=== PATIENT | female | born 2005 | race Caucasian/White ===

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

== ENCOUNTER 2024-06-07 12:44 | Emergency (ER) | payer OTHER, SELFPAY ==
[2024-06-07 13:04] VITALS: BP 105/67; PULSE 115; RESP 16; TEMP 36.7; O2SAT 100
[2024-06-07 13:36] LABS: EDSTREPNEGPOS1 Negative (Negative)
--- NOTE | 2024-06-07 13:47 | ED_ITS ---
HPI - General Adult General Chief complaint: Upper Respiratory Infection Stated complaint: Sore Throat Source: patient Mode of arrival: ambulatory History of Present Illness HPI narrative: Patient presents requesting a test for strep pharyngitis. Several individuals with whom she lives tested positive earlier today. She denies sore throat. No fever, chills, cough, shortness of breath or any other physical complaints whatsoever. Related Data Home Medications ?Medication ?Instructions ?Recorded ?Confirmed ?Last Taken ?Type No Home Medications 06/07/24 06/07/24 Unknown History Allergies Allergy/AdvReac Type Severity Reaction Status Date / Time No Known Allergies Allergy Unknown Verified 06/07/24 13:24 Review of Systems Review of Systems: CONSTITUTIONAL: Denies fever, chills, or sweats. EYES: Denies visual changes, redness, or discharge. ENT: Denies rhinorrhea, congestion, sore throat, or otalgia. CARDIOVASCULAR: Denies chest pain, palpitations, or edema. RESPIRATORY: Denies cough or dyspnea. GASTROINTESTINAL: Denies abdominal pain, nausea, vomiting, or diarrhea. GENITOURINARY: Denies dysuria or hematuria. SKIN: Denies rash or itching. MUSCULOSKELETAL: Denies back pain, joint pain, or myalgia. NEUROLOGIC: Denies headache, numbness, dizziness, or weakness. PSYCHIATRIC: Denies anxiety or depression. [facility] Past Medical History Medical History No pertinent past medical history Surgical History Surgical History No pertinent past surgical history Family History Family History Mother Family history non-contributory Social History Social History Smoking status: Never smoker Alcohol intake: never Substance use: never Living arrangements: with family Gender identity (if verbalized by the patient): Female Spiritual care concerns: No Exam Narrative: GENERAL: Well-appearing, well-nourished, and in no acute distress. HEAD: Normocephalic, atraumatic. EYES: PERRLA and EOMI. ENT: Nares clear, no rhinorrhea or epistaxis. Mucous membranes moist. Oropharynx without tonsillar hypertrophy exudate or other lesions. Bilateral TMs pearly schwarz nonbulging NECK: Supple. No adenopathy or masses. No carotid bruits or JVD CHEST: Clear to auscultation. No respiratory distress. No wheezes rales or rhonchi HEART: Regular rate and rhythm. No murmur heard. Normal peripheral pulses. ABDOMEN: Soft, nontender, nondistended, normal active bowel sounds. EXTREMITIES: Normal range of motion. No edema. SKIN: Warm, dry, no rash. NEURO: No focal deficits. Alert and oriented x3. PSYCH: Normal mood and affect. Course Course Emergency Course: This is a 18 yr old female who presented today requesting a strep test. Her test was negative. She is asymptomatic. Advised on infection prevention measures. Follow up with primary provider. Go to the ER for worsening symptoms. Pt in agreement with plan of care. Level of Care: Express Care Visit Vital Signs Vital signs: Vital Signs Temperature 36.7 C 06/07/24 13:04 Pulse Rate 115 H 06/07/24 13:04 Respiratory Rate 16 06/07/24 13:04 Blood Pressure 105/67 06/07/24 13:04 Pulse Oximetry 100 06/07/24 13:04 Temperature 36.7 C 06/07/24 13:04 Pulse Rate 115 H 06/07/24 13:04 Respiratory Rate 16 06/07/24 13:04 Blood Pressure 105/67 06/07/24 13:04 Pulse Oximetry 100 06/07/24 13:04 Medical Decision Making Vital Signs Vital Signs: Vital Signs Temperature 36.7 C 06/07/24 13:04 Pulse Rate 115 H 06/07/24 13:04 Respiratory Rate 16 06/07/24 13:04 Blood Pressure 105/67 06/07/24 13:04 Pulse Oximetry 100 06/07/24 13:04 Temperature 36.7 C 06/07/24 13:04 Pulse Rate 115 H 06/07/24 13:04 Respiratory Rate 16 06/07/24 13:04 Blood Pressure 105/67 06/07/24 13:04 Pulse Oximetry 100 06/07/24 13:04 Lab Data Labs: Lab Results 06/07/24 Range/Units 13:34 POC Grp A Strep Screen Negative (Negative) Discharge Plan Discharge Clinical Impression: Exposure to strep throat Patient Disposition: Home, Self-Care Condition: Stable Instructions: Antibiotic Form, Normal Exam (ED) Patient Language: Turkmen Prescriptions: No Action No Home Medications Follow-up/Referrals: Sabas,Margaret Gary MD [Primary Care Provider] - Time of Disposition: 13:46
--- OUTSIDE RECORDS SUMMARY | 2024-06-09 00:29 | XMS_ITS | Clinical Summary ---
Author Organization [facility] Address [address] [place] [address] Phone Care Team Providers Care Cougar Hunter Name Role Phone Humphrey Alston MD Primary Care Provider Allergies No known active allergies Medications No known medications Social History Tobacco Use Types Packs/Day Years Used Date Smoking Tobacco: Never Assessed Comments No Sex and Gender Information Value Date Recorded Sex Assigned at Not on file Legal Sex Female 11:13 PM CDT Gender Identity Not on file Sexual Orientation Not on file Last Filed Vital Signs Vital Sign Reading Time Taken Comments Blood Pressure 112/63 11/05/2019 10:14 PM CDT Pulse 78 11/06/2019 12:14 AM CDT Temperature 37.3 ??C (99.1 ??F) 11/05/2019 1 0:14 PM CDT Respiratory Rate 18 11/06/2019 12:1 4 AM CDT Oxygen Saturation 99% 11/06/2019 12: 14 AM CDT Inhaled Oxygen Concentration - - Weight 48.8 kg (107 lb 9.4 oz) 11/05/19 20 10:14 PM CDT Height 160 cm (5' 3 ) 11/05/2019 10:14 PM CDT Body Mass Index 19.06 11/05/2019 10:14 PM CDT Body Mass Index Percentile 39.01% 11/04 10:14 PM CDT Growth Chart: CDC (Girls, 2- 20 Years) Plan of Treatment Health Maintenance Due Date Last Done Comments Hepatitis C Virus (HCV) Screening 2004 Meningococcal B Immunization (1 of 2 - Standard) 2020 Influenza Immunization (#1) 01/16/202404/16, 01/28/2016, 03/03/2013 SARS-COV-2 Immunization ( season) 2024 Respiratory Syncytial Virus (RSV) Immunization (Adult) (1 - 1-dose 75+ series) 12/16/2079 Hepatitis B Immunization Completed 007, 11/19/2005, 04/02/2005, Additional history exists Pneumococcal Immunization Combined Aged Out 03/08/2007, 07/13/2006, 11/19/2005, Additional history exists No longer eligible based on patient's age to complete this topic Hepatitis A Immunization Discontinued 01/29/2010 Measles Mumps Rubella (MMR) Immunization Discontinued 01/29/2010, 07/13/2006 Polio (IPV) Immunization Discontinued 010, 07/13/2006, 11/19/2005, Additional history exists Varicella Immunization Discontinued 01/29/2010, 2006 DTaP/Tdap/Td Immunization Discontinued 2015, 01/29/2010, 03/08/2007, Additional history exists TdaP Immunization Completed 01/28/2016 Human Papillomavirus (HPV) Immunization Completed 05/04/2017, 01/28/2016 Meningococcal Immunization (ACWY) Completed 12/18/2021, 01/28/2016 Rotavirus Immunization Aged Out No lo nger eligible based on patient's age to complete this topic Insurance * Guarantor: Tammy Rios Account Type Relation to Patient Date of Phone Billing Address Personal/Family Self 2005 [id number] [place] [id number] [employer]ICAID [employer] Care Teams Cougar Hunter Relationship Specialty Start Date End Date Humphrey Alston MD [address] [place] [id number] PCP - General Pediatrics 11/05/19
--- OUTSIDE RECORDS SUMMARY | 2024-06-09 00:29 | XMS_ITS | Clinical Summary ---
Author Organization [facility] Address [address] [place] [address] Care Team Providers Care Horse Breeder Name Role Phone Humphrey Alston MD Primary Care Provider [phone] Source Comments [facility],non-owned Affiliates and Associated Physician Practices is amultiple site organization consisting of ambulatory clinics and hospital sitesin [place], [place], [place] and [place]. This disclosure is being madepursuant to the Care Everywhere program and may not contain all information available regarding this patient. Last updated 18.[facility] Social History Tobacco Use Types Packs/Day Years Used Date Smoking Tobacco: Never Assessed Sex and Gender Information Value Date Recorded Sex Assigned at Not on file Gender Identity Not on file Sexual Orientation Not on file Plan of Treatment Health Maintenance Due Date Last Done Comments HIV SCREENING 12/16/2019 HPV VACCINE (1 - 3-dose series) 12/16/2019 CHLAMYDIA/GONORRHEA SCREENING 2020 MENINGOCOCCAL (Group B) VACC INE (1 of 2 - Standard) 2020 HEPATITIS C SCREENING 12/11/2022 DTAP/TDAP/TD VACCINES (1 - Tdap) 12/16/2023 HEPATITIS B VACCINE (1 of 3 - 19+ 3-dose series) 12/16/2023 COVID-19 VACCINE (1 - 2023-2 5 season) 2024 INFLUENZA VACCINE (#1) 2024 DEPRESSION SCREENING 05/17/2024 ZOSTER VACCINE (1 of 2) 2054 HIB VACCINE Aged Out No longer eligi ble based on patient's age to complete this topic MENINGOCOCCAL VACCINE Aged Out No cole jeffrey eligible based on patient's age to complete this topic PNEUMOCOCCAL VACCINE Aged Out No long er eligible based on patient's age to complete this topic Care Teams Horse Breeder Relationship Specialty Start Date End Date Humphrey Alston MD [address] [place] [phone] PCP - General Pediatrics 07/12/20
--- OUTSIDE RECORDS SUMMARY | 2024-06-09 00:29 | XMS_ITS | Referral Summary ---
Author Organization [facility] Address [address] [place] [address] Care Team Providers Care Gas Plumber Name Role Phone Humphrey Alston MD Primary Care Provider [phone] Source Comments [facility],non-owned Affiliates and Associated Physician Practices is amultiple site organization consisting of ambulatory clinics and hospital sitesin [place], [place], [place] and [place]. This disclosure is being madepursuant to the Care Everywhere program and may not contain all information available regarding this patient. Last updated 18.[facility] [employer] Social History Tobacco Use Types Packs/Day Years Used Date Smoking Tobacco: Never Assessed Sex and Gender Information Value Date Recorded Sex Assigned at Not on file Gender Identity Not on file Sexual Orientation Not on file Plan of Treatment Not on file Care Teams Gas Plumber Relationship Specialty Start Date End Date Humphrey Alston MD [address] [place], [place] [id number] PCP - General Pediatrics 07/12/20
--- OUTSIDE RECORDS SUMMARY | 2024-06-09 00:29 | XMS_ITS | Patient Health Summary ---
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,non-owned Affiliates and Associated Physician Practices is amultiple site organization consisting of ambulatory clinics and hospital sitesin [place], [place], [place] and [place]. This disclosure is being madepursuant to the Care Everywhere program and may not contain all information available regarding this patient. Last updated 18.[facility] Social History Tobacco Use Types Packs/Day Years Used Date Smoking Tobacco: Never Assessed Sex and Gender Information Value Date Recorded Sex Assigned at Not on file Gender Identity Not on file Sexual Orientation Not on file Care Teams Bumper Machine Operator Relationship Specialty Start Date End Date Humphrey Alston MD [address] [phone] PCP - General Pediatrics 07/12/20
--- OUTSIDE RECORDS SUMMARY | 2024-06-09 00:29 | XMS_ITS | Data Portability ---
Author Organization [facility] Jan Rod Address [address] [place] [address] Care Team Providers Care Relief Mate Name Role Phone RONNELL WHATLEY Knotter Hand GURJIT MA Primary Care Provider Unavailab le Assessment No assessment recorded. Plan of Treatment Reminders Order Date Submit Date Provider Last Modified By Organization Details Last Modified Time Details Appointments ANY 15 2024 03:30P M Ronnell Whatley MD Not available Not available Not available Dental Proced ure 30 2024 02:00P M KEVEN JACOBO DMD Not available Not available Not available Prophy 30 2024 01:00P M KEVEN JACOBO DMD Not available Not available Not available Lab None record ed. Referral dermat ologis t referr al 2022 023 MARIBEL Carter MD, [address], [address], 07/16/2023 10:27:52 Procedures None record ed. Surgeries None record ed. Imaging None record ed. Medication Orders cetiri zine 10 mg tablet 2022 023 [id number], [address] [place], [address], 11/17/2023 15:28:08 clobet asol 0.05 % topica l ointme nt 2022 023 [email or web address] [id number], [address] [place], [address], 11/17/2023 15:28:12 Sprint ec (28) 0.25 mg-35 mcg tablet 2022 023 [id number], [address] [place], [address], 11/17/2023 15:28:22 triamc inolon e aceton leonel 0.1 % topica l ointme nt 2022 023 [id number], [address] [place], [address], 11/17/2023 15:28:54 Depo-P rovera 150 mg/mL intram uscula r suspen shirley 2023 024 [id number] [address] [place], [address], 11/24/2023 11:34:28 medrox yproge steron e 150 mg/mL intram uscula r suspen shirley [id number], [address] [place], [address], 12/10/2023 21:55:20 medrox yproge steron e 150 mg/mL intram uscula r syring e 2023 024 [id number] [place], [address], 03/08/2024 14:18:46 Patient TargetsNo targets recorded. Patient InstructionsNo instructions recorded. 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 Problems Name Problem SNOMED Code Status Onset Date Resolution Date Notes Provider Name and Address Organization Details Recorded Time Eczema 38192817 Active 12/19/ 2017 Suyapa [place], [place] [facility] 7 10:15:43 Teenage 335573404 Active 2021 Melva Beltran, R[place] [facility] 3 14:25:01 70638066 Completed 202107/23/2022 Alvina Campoverde LPN [place] [facility] 3 08:52:41 Teenage 473071353 Completed 2021 Melva BeltranCRISTO [place] [facility] 3 14:25:01 Marijuana user 914578523 Active 2021 Melva Bel[place]anCRISTO [place] [facility] 3 14:25:01 Marijuana user 632974135 Completed 2021 Melva Bel[place]CRISTO [place] [facility] 3 14:25:01 Anemia of 48163036 Completed 2021 Melva Beltran, R[place] [facility] 3 14:25:01 Anemia of 27186860 Active 2021 Melva Beltran[place] R[place] [facility] 3 14:25:01 Problem Notes None recorded. Procedures Surgical History Date Name Laterality Status Provider Name and Address Organization Details Recorded Time 4 arthroplasty completed Yelitza Das [place] [facility] 11/17/2023 15:32:39 Imaging Results None recorded. Procedure Notes None recorded. Medical Equipment None Reported. Allergies No known drug allergies Medications Name Sig Start Date Stop Date Status Note LastModified by Organization Details LastModified Time cetirizine 10 mg tablet Take 1 tablet every day by oral route. 11/16 completed Not Available Not Available Not Available metronidazo le 500 mg tablet Take 1 tablet twice a day by oral route. 04/17 completed Not Available Not Available Not Available nifedipine ER 30 mg tablet,exte nded release 08/10 completed Not Available Not Available Not Available acetaminoph en 500 mg tablet 11/16 completed Not Available Not Available Not Available amoxicillin 875 mg tablet 05/04 completed Not Available Not Available Not Available tacrolimus 0.1 % topical ointment APPLY TOPICALLY DAILY (FACE). 11/16 completed Not Available Not Available Not Available ferrous sulfate 325 mg (65 mg iron) tablet TAKE 1 TABLET BY MOUTH EVERY DAY FOR 30 DAYS 10/06 completed Not Available Not Available Not Available triamcinolo ne acetonide 0.1 % topical ointment APPLY TOPICALLY DAILY (BODY). 11/16 completed Not Available Not Available Not Available vitamin-julian israel fumarate 28 mg iron-folic acid 800 mcg tablet Take 1 tablet every day by oral route for 30 days. 04/17 completed Not Available Not Available Not Available docusate sodium 100 mg capsule TAKE 1 CAPSULE BY MOUTH EVERY DAY 10/06 completed Not Available Not Available Not Available clobetasol 0.05 % topical ointment APPLY A THIN LAYER TO THE AFFECTED AREA(S) BY TOPICAL ROUTE 2 TIMES PER DAY FOR 2 WEEKS 11/16 completed Not Available Not Available Not Available ibuprofen 600 mg tablet 10/06 completed Not Available Not Available Not Available fluticasone propionate 50 mcg/actuati on nasal spray,suspe nsion 12/12 completed Not Available Not Available Not Available medroxyprog esterone 150 mg/mL intramuscul ar suspension INJECT 1 MILLILITE R INTRAMUSC ULARLY EVERY 3 MONTHS active Not Available Not Available No t Available naproxen 500 mg tablet TAKE 1 TABLET BY MOUTH TWICE A DAY WITH MEALS 11/16 completed Not Available Not Available Not Available amoxicillin 875 mg-potassiu m clavulanate 125 mg tablet 11/16 completed Not Available Not Available Not Available oxycodone 5 mg tablet 11/16 completed Not Available Not Available Not Available medroxyprog esterone 150 mg/mL intramuscul ar syringe Inject 1 mL every 3 months by intramusc ular route. 2023 active Not Available Not Available Not Avai lable Junel FE 06/05 (28) 1 mg-20 mcg (21)/75 mg (7) tablet TAKE 1 TABLET BY MOUTH EVERY DAY 12/18 completed Not Available Not Available Not Available nitrofurant oin monohydrate /macrocryst als 100 mg capsule 11/16 completed Not Available Not Available Not Available hydrocortis one 12/16 completed Not Available Not Available Not Available 28 mg iron-800 mcg tablet TAKE 1 TABLET BY MOUTH EVERY DAY 10/06 completed Not Available Not Available Not Available Stimulant Laxative Plus 8.6 mg-50 mg tablet 11/16 completed Not Available Not Available Not Available Rosi 0.25 mg-35 mcg tablet TAKE 1 TABLET BY MOUTH EVERY DAY 11/16 completed Not Available Not Available Not Available Twirla 120 mcg-30 mcg/24 hr transdermal patch Apply 1 patch every week by transderm al route for 21 days. 10/06 completed Not Available Not Available Not Available Vitals Date Recorded Body weight Provider Name an d Address Organization Details Last Updated DateTime 10/06/2022 76737.84 g Latesha green MA [facility] 10/06/2022 14:53:08 Date Recorded Body mass index (BMI) Percentile per age and sex Body mass index (BMI) Body height Provider Name and Address Organization Details Last Updated DateTime 10/06/2022 83 % 25.1 kg/m2 162.56 cm Latesha Dubon MA [facility] 10/06/2022 14:53:16 Date Recorded Body temperature Provider Name a nd Address Organization Details Last Updated DateTime 10/06/2022 97.5 [degF] Latesha green MA [facility] 10/06/2022 14:59:29 Date Recorded Oxygen saturation Oxygen saturation in Arterial blood by Pulse oximetry Provider Name and Address Organization Details Last Updated DateTime 10/06/2022 98 % 98 % Latesha Dubon MA [facility] 10/06/2022 14:59:38 Date Recorded Heart rate Provider Name an d Address Organization Details Last Updated DateTime 10/06/2022 67 /min Latesha green MA [facility] 10/06/2022 14:59:40 Date Recorded Body height Provider Name an d Address Organization Details Last Updated DateTime 10/14/2022 162.56 cm CRISTO Matthews [facility] 2022 12:19:03 Date Recorded Body mass index (BMI) Body mass index (BMI) Percentile per age and sex Body weight Provider Name and Address Organization Details Last Updated DateTime 10/14/2022 25.2 kg/m2 83 % 33781.08 blue Melva Beltran Hu [facility] 10/14/2022 12:26:30 Date Recorded Body height Provider Name an d Address Organization Details Last Updated DateTime 11/17/2023 162.56 cm Yelitza Das MA [facility] 11/17/2023 15:26:28 Date Recorded Body mass index (BMI) Percentile per age and sex Body mass index (BMI) Body weight Provider Name and Address Organization Details Last Updated DateTime 11/17/2023 57 % 22.1 kg/m2 45034.56 g Yelitza Das MA [facility] 11/17/2023 15:26:35 Date Recorded Heart rate Provider Name an d Address Organization Details Last Updated DateTime 11/17/2023 82 /min Yelitza Das MA [facility] 07/2023 15:26:54 Date Recorded Body height Provider Name an d Address Organization Details Last Updated DateTime 12/09/2023 162.56 cm Kelly Aguirre MA [facility] 12/09/2023 15:04:04 Date Recorded Body mass index (BMI) Percentile per age and sex Body mass index (BMI) Body weight Provider Name and Address Organization Details Last Updated DateTime 12/09/2023 59 % 22.3 kg/m2 20153.44 blue Kelly Aguirre MA [facility] 12/09/2023 15:12:05 Date Recorded Body height Provider Name an d Address Organization Details Last Updated DateTime 03/07/2024 162.56 cm Melva Beltran [facility] 2023 13:35:44 Date Recorded Body mass index (BMI) Body mass index (BMI) Percentile per age and sex Body weight Provider Name and Address Organization Details Last Updated DateTime 03/07/2024 22.5 kg/m2 60 % 19954.03 blue Melva Beltran [facility] 03/07/2024 13:48:22 Date Recorded Systolic blood pressure Diastolic blood pressure Provider Name and Address Organization Details Last Updated DateTime 10/06/2022 103 mm[Hg] 62 mm[Hg] Latesha RoweRELL luna [facility] 10/06/2022 15:01:35 Date Recorded Systolic blood pressure Diastolic blood pressure Provider Name and Address Organization Details Last Updated DateTime 10/14/2022 122 mm[Hg] 69 mm[Hg] Melva Beltran Hu [facility] 10/14/2022 12:26:41 Date Recorded Systolic blood pressure Diastolic blood pressure Provider Name and Address Organization Details Last Updated DateTime 11/17/2023 103 mm[Hg] 66 mm[Hg] Yelitza GarciahensonRELL [facility] 11/17/2023 15:26:47 Date Recorded Systolic blood pressure Diastolic blood pressure Provider Name and Address Organization Details Last Updated DateTime 12/09/2023 114 mm[Hg] 69 mm[Hg] Kelly BeckerRELL [facility] 12/09/2023 15:12:09 Date Recorded Systolic blood pressure Diastolic blood pressure Provider Name and Address Organization Details Last Updated DateTime 03/07/2024 103 mm[Hg] 63 mm[Hg] Melva Beltran [facility] 03/07/2024 13:48:27 Social History Question Answer Notes LastModified by Organizat ion Details LastModified Time Tobacco Smoking Status Never Smoker Suyapa Layne MA [facility] 05/04/2017 10:18:06 What Is Your Level Of Alcohol Consumption? None Information not available 12/12/2020 Animal Exposure? Yes 3 Dogs, 2 Cats [email or web address] Information not available 05/04/2017 Do You Wear A Helmet When Biking? No Information not available 12/18/2021 Are You Or Have You Been Involved With Bullying? No [email or web address] Information not available 05/04/2017 What Is Your Level Of Caffeine Consumption? Moderate Information not available 05/04/2017 In The 14 Days Before Symptom Onset, Have You Had Close Contact With A Laboratory-confi rmed COVID-19 While That Case Was Ill? No Information not available 12/12/2020 In The 14 Days Before Symptom Onset, Have You Had Close Contact With A Person Who Is Under Investigation For COVID-19 While That Person Was Ill? No Information not available 12/12/2020 Have You Been To An Area Known To Be High Risk For COVID-19? No Information not available 12/12/2020 Are You Currently Employed? No Information not available 12/12/2020 What Type Of Diet Are You Following? REGULAR [email or web address] Information not available 05/04/2017 Which Illicit Or Recreational Drugs Have You Used? Marijuanna Information not available 12/12/2020 What Is The Highest Grade Or Level Of School You Have Completed Or The Highest Degree You Have Received? [id number] Information not available 12/18/2021 Have There Been Any Changes To Your Family Or Social Situation? No Information not available 01/08/2022 Are There Any Guns Present In Your Home? No [email or web address] Information not available 05/04/2017 What Is Your Home Situation? Both Parents Lives With Mom, Step Dad, 2 Half Brothers [email or web address] Information not available 05/04/2017 Do You Use Insect Repellent Routinely? Yes [email or web address] Information not available 05/04/2017 Car Seat Type Or Seat Belt? Seat Belt Information not available 05/04/2017 Parent Involvement? Dad Not Invloved Information not available 05/04/2017 Riding In Car Front Seat? Yes [email or web address] Information not available 05/04/2017 What Was The Date Of Your Most Recent Tobacco Screening? 12/09/2023 Information not available 12/09/2023 What Is Your Parents' Marital Status? Unmarried Information not available 12/18/2021 Do You Have Any Pets? Yes X 7 Cats, X4 Dogs, X1 Lizard,x 1 Turttle Information not available 01/08/2022 Do You Use Protection During Sex? Usually Information not available 12/12/2020 What Is Your Relationship Status? Single Information not available 12/12/2020 Do You Use Your Seat Belt Or Car Seat Routinely? Yes Information not available 12/12/2020 Are You Sexually Active? Yes Information not available 12/12/2020 Do You Have Any Siblings? 2 Half Brothers [email or web address] Information not available 05/04/2017 Do You Have Smoke And Carbon Monoxide Detectors In Your Home? Yes [email or web address] Information not available 05/04/2017 Are You Passively Exposed To Smoke? Yes [email or web address] Information not available 05/04/2017 Do You Participate In Social Media? Yes Information not available 12/18/2021 Do You Feel Stressed (tense, Restless, Nervous, Or Anxious, Or Unable To Sleep At Night)? [id number] Information not available 12/12/2020 Do You Use Any Illicit Or Recreational Drugs? Yes Pt States She Has Duane Jimenez 12/12/20 Information not available 12/12/2020 Do You Use Sunscreen Routinely? Yes [email or web address] Information not available 05/04/2017 Has Tobacco Cessation Counseling Been Provided? No Information not available 12/12/2020 Have You Used IV Drugs? No Information not available 01/08/2022 Year In School 10 Informatio n not available 12/12/2020 Do You Or Have You Ever Used Any Other Forms Of Tobacco Or Nicotine? No Information not available 12/12/2020 Sex: Female Functional Status Question Answer Note LastModified by Organization D etails LastModified Time What is your exercise level? Moderate Information not available 05/04/2017 Mental Status None recorded. Family History Relationship Description Onset Age of this Age Resolved Age Notes LastModified by Organization Details LastModified Time Maternal Grandmother Diabetes mellitus [email or web address] Not available 2016 10:17:06 Maternal Grandfather Heart disease [email or web address] Not available 2016 10:17:14 Maternal Grandfather Hypertensive disorder [email or web address] Not available 2016 10:17:23 Father No current problems or disability [email or web address] Not available 05/04 10:17:29 Mother No current problems or disability [email or web address] Not available 05/04 10:17:29 Medical History Condition Response Other N High Blood Pressure N Breast Cancer N Thyroid Problems N Kidney or Bladder Problems N Lung Disease N Depression N Blood Clots N GI Problems N Acne N Breast Problem N Eating Disorder N Anemia N Anesthesia Complications N Headaches/Migraines N Ovarian Cancer N Diabetes N Anxiety Disorder N Muscle, Joint, or Bone Problems N Blood Transfusions N Seizures/Epilepsy N Polyps N Infertility N Acid Reflux (GERD) N Cancer N Abuse/Domestic Violence N Asthma N Endometriosis N High Cholesterol N Hepatitis N Liver Disease N Heart Disease N Pre-Eclampsia N Osteoporosis N Gynecological History Statement/Question Response Flow Moderate Date of LMP 09/15/2022 STIs/STDs N HPV Vaccine Y Duration of Flow (days) 7 Age at Menarche 11 Current Control Method 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 Y Menses Monthly Y Sexual Problems? N LMP Definite Obstetrics History GPAL:G 1 P 1 0 0 1 Type Value Multiple Births 0 Full Term 1 Induced 0 Spontaneous 0 Premature 0 Living 1 Ectopics 0 Total 1 Immunizations Vaccine Type Date Status Note Provider Nam e and Address Organization Details Recorded Time Influenza, split virus, quadrivalent, PF 6 completed GURJIT MA MD Attn: Accounting,[address] [place], [place], [address] [place] [address], [place] [facility] 05/26/2022 09:56:13 influenza, split (incl. purified surface antigen) 0 completed GURJIT MA MD Attn: Accounting,[address] [place], [place], [address] [place] [address], [place] [facility] 05/26/2022 09:56:13 Hep A, pediatric, unspecified formulation 7 completed GURJIT MA MD Attn: Accounting,[address] [place], [place], [address] [place] [address], [place] [facility] 05/26/2022 09:56:13 meningococcal MCV4P 6 completed GURJIT MA MD Attn: Accounting,[address] [place], [place], [address] [place] [address], [place] [facility] 05/26/2022 09:56:13 Hep A, pediatric, unspecified formulation 0 completed GURJIT MA MD Attn: Accounting,[address] [place], [place], [address] [place] [address], [place] [facility] 05/26/2022 09:56:13 Influenza, live, quadrivalent, intranasal 3 completed GURJIT MA MD Attn: Accounting,[address] [place], [address], [place] [facility] 05/26/2022 09:56:13 HPV9 7 completed Not Available [facility] 06/03/2019 02:47:14 Influenza, split virus, quadrivalent, PF 7 completed Not Available [facility] 06/03/2019 02:34:51 meningococcal MCV4P 2 completed Suyapa Larkin [place] [facility] 12/18/2021 11:27:11 Tdap 3 completed Alvina Campoverde LPN [place] [facility] 05/28/2022 09:22:24 DTaP, unspecified formulation 5 completed Suyapa Lay[place] [facility] 05/04/2017 09:59:43 DTaP, unspecified formulation 7 completed Suyapa [place] [facility] 05/04/2017 09:59:49 DTaP-Hep B-IPV 6 completed Suyapa [place] [facility] 05/04/2017 10:00:09 DTaP-Hep B-IPV 7 completed GURJIT MA MD Attn: Accounting,[address] [place], [address], [place] [facility] 05/26/2022 09:56:13 DTaP-IPV 0 completed Suyapa [place] [facility] 05/04/2017 10:00:28 Hib, unspecified formulation 5 completed Suyapa [place] [facility] 05/04/2017 10:00:37 Hib, unspecified formulation 6 completed Suyapa [place] [facility] 05/04/2017 10:00:43 Hib, unspecified formulation 7 completed uSyapa [place] [facility] 05/04/2017 10:00:47 Hib (PRP-OMP) 7 completed GURJIT MA MD Attn: Accounting,[address] [place], [address], [place] [facility] 05/26/2022 09:56:13 Hep A, ped/adol, 2 dose 7 completed GURJIT MA MD Attn: Accounting,[address] [facility], [place], [address], [place] [facility] 05/26/2022 09:56:13 Hep A, ped/adol, 2 dose 0 completed GURJIT MA MD Attn: Accounting,[address] [facility], [place], [address], [place] [facility] 05/26/2022 09:56:13 Hep B, adolescent or pediatric 5 completed Suyapa [place] [facility] 05/04/2017 10:01:25 Hep B, adolescent or pediatric 5 completed Suyapa [place] [facility] 05/04/2017 10:01:32 HPV9 6 completed GURJIT MA MD Attn: Accounting,[address] [facility], [place], [address], [place] [facility] 05/26/2022 09:56:13 influenza, unspecified formulation 0 completed GURJIT MA MD Attn: Accounting,[address] [facility], [place], [address], [place] [facility] 05/26/2022 09:56:13 influenza, unspecified formulation 3 completed GURJIT MA MD Attn: Accounting,[address] [facility], [place], [address], [place] [facility] 05/26/2022 09:56:13 MMR 7 completed GURJIT MA MD Attn: Accounting,[address] [facility], [place], [address], [place] [facility] 05/26/2022 09:56:13 MMRV 0 completed Suy[place] [facility] 05/04/2017 10:02:22 meningococcal MCV4, unspecified formulation 6 completed GURJIT MA MD Attn: Accounting,[address] [facility], [place], [address], [place] [facility] 05/26/2022 09:56:13 pneumococcal conjugate PCV 7 5 completed Suy[place] [facility] 05/04/2017 10:02:47 pneumococcal conjugate PCV 7 6 completed Su[place] [facility] 05/04/2017 10:02:50 pneumococcal conjugate PCV 7 7 completed GURJIT MA MD Attn: Accounting,[address] [facility], [place], [address], [place] [facility] 05/26/2022 09:56:13 pneumococcal conjugate PCV 7 7 completed Suyapa [place] [facility] 05/04/2017 10:02:59 IPV 5 completed Su[place] [facility] 05/04/2017 10:03:09 Tdap 6 completed GURJIT MA MD Attn: Accounting,[address] [facility], [place], [address], [place] [facility] 05/26/2022 09:56:13 varicella 7 completed Su[place] [facility] 05/04/2017 10:03:32 Past Encounters Encounter ID Performer Location Encounter Start Date Encounter Closed Date Diagnosis/Indication Diagnosis SNOMED-CT Code Diagnosis ICD10 Code Diagnosis Note [id number] MD Neelima Fulton (Peds) [address] [place] [address] 05/04/2017 09:57:14 05/05/2017 08:35:04 Well child 632731914 Z00.129 discussed routine child development director discussed safety and school performanc e discussed healthy weight with diet and exercise Dysmenorrhea 897833560 N 94.6 discussed cycles with pt and mother. discussed using ibuprofen 2 days prior to onset to alleviate pain. [id number] MD Neelima Fulton (Peds) [address] [place] [address] 12/16/2018 14:25:57 12/19/2018 10:30:27 Well child 984420692 Z00.129 discussed routine child development director discussed safety and school performanc e discussed healthy weight with diet and exercise Dysmenorrhea 558475416 N 94.6 discussed cycles with pt and mother. discussed using ibuprofen 2 days prior to onset to alleviate pain. Diet education 78585935 Z71.3 Exercises education, guidance, and counseling 551420960 Z71.82 [id number] [facility] [address] [place] [address] 03/02/2019 16:18:14 03/03/2019 11:42:10 Upper respiratory infection 47944164 J06.9 rest, tylenol prn, humidifier , vitmain c, etc [id number] [facility] [address] [place] [address] 07/27/2019 16:00:43 07/28/2019 09:30:48 Upper respiratory infection 49328228 J06.9 rest, tylenol prn, humidifier , vitmain c, etc [id number] Lorin Ortez (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) [address] [place] [facility] [place] [address] 12/12/2020 10:48:45 12/13/2020 04:20:58 Initial prescription of oral contraception 394883684 Z30.011 control options discussed. Pt. wants pills. Rx sent to pharmacy. Instructivette barragan discussed. Venereal d isease screening 402534310 Z11.3 Telephone visit one week for results. Missed period 71389465 N 92.5 UPT negative, dwp. [id number] [facility] (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) [address] [place] [facility] [place] [address] 12/19/2020 08:08:26 12/26/2020 14:45:15 Bacterial vaginosis 292620572 N76.0 Diagnosis d/w pt. Rx sent to pharmacy. Viry barragan discussed. Venereal d isease screening 833928897 Z11.3 Vaginal culture was negative for gonorrhea, chlamydia, and trichomona s, dwp. STD panel was also completely negative. Individual test results dwp. [id number] Trey Alston MD [facility] (Peds) [address] [place] [address] 12/18/2021 10:27:00 12/19/2021 08:00:27 Well child visit 833085921 Z00.129 discussed routine adolescent carediscus sed safety and school performanc ediscussed healthy weight Diet education 35665279 Z71.3 Exercises education, guidance, and counseling 153673049 Z71.82 Teenage [id number] 001 O09.619 pt states she has appt arranged with 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 DR [place]. [id number] MD Polo Lindsey [address] [place] [address] [address] Joy [facility] [address] 01/08/2022 09:48:27 01/12/2022 07:55:01 Routine care [id number] Z34.91 Vaginal discharge 429198 006 N89.8 [id number] MD Polo Hernandez [address] [place] [address] Dr Joy [facility] [place] [address] 01/14/2022 11:04:01 01/15/2022 10:10:13 Routine care [id number] Z34.91 Tammy is a 16y/o presenting @ 12+3 dated by LMP; here for dating US.- US consistent with IUP 13+4 with JANICE 07/18/2012- recommend change of dates for >7 days difference . OB episode updated. [id number] MD Polo Lindsey [address] Joy [address] [place] [address], [place] [address] 02/09/2022 10:06:04 02/11/2022 09:18:22 Routine care 722588796 Z34.91 Marijuana user 621802434 F12.90 --Encourag e cessation Teenage 259249 001 O09.643 [id number] MD Polo Lindsey [address] Joy [facility] [place] [address] 03/20/2022 10:34:52 03/23/2022 16:42:10 Routine care 875292079 Z34.02 At critical [facility] hospital risk of urinary tract infection 479540901 Z91.89 Marijuana user 872030900 F12.90 --Encourag e cessation Teenage 786041 001 O09.232 [id number] MD Polo Lindsey 14 OB 4 [facility] [address] Joy [address] [place] [address] 04/17/2022 09:54:54 04/21/2022 09:31:24 Routine care 677095178 Z34.02 At critical access hospital risk of urinary tract infection 480868951 Z91.89 [id number] [facility] (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) [address] Joy [address] [place] [address] 05/26/2022 09:46:37 05/28/2022 11:08:04 Eczema 40816377 L30.9 - Suspect atopic dermatitis related to since patient has not had eczema this bad until she became - Discussed basics of skin health, including moisturize r use on damp skin and using Skin Safe Products website to find allergen-f ree products- Will add topical steroid to use on arms and hands until delivery; advised patient not to use on face- Okay to use OTC allergy medicine such as cetirizine as needed for itch [id number] MD Polo Lindsey 14 OB 4 [facility] [address] Joy [address] [place] [address] 05/27/2022 16:30:39 05/28/2022 09:39:19 Routine care 127275268 Z34.02 Administra tion of diphtheria, pertussis, and tetanus vaccine 678605628 Z23 Anemia of 2734 2003 O99.019 --Continue iron daily Marijuana user 688227002 F12.90 --Encourag e cessation Teenage 812648 001 O09.619 --security services manager consult prior to discharge [id number] MD Polo Lindsey 14 OB 4 [facility] [address] Joy [address] [place] [address] 06/10/2022 14:03:07 06/11/2022 09:45:14 Routine care 542787480 Z34.02 Anemia of 2734 2003 O99.019 --Continue iron daily Marijuana user 370939024 F12.90 --Encourag e cessation Teenage 216079 001 O09.619 --security services manager consult prior to discharge [id number] MD Polo Lindsey 14 OB 4 [facility] Dr Joy [address] [place] [address] 06/17/2022 15:01:56 06/18/2022 09:17:16 Routine care 393494908 Z34.02 At critical access hospital risk of urinary tract infection 933409243 Z91.89 Teenage 469792 001 O09.619 --security services manager consult prior to discharge Anemia of 2734 2003 O99.019 --Continue iron daily Marijuana user 346922908 F12.90 --Encourag e cessation [id number] MD Polo Lindsey 14 OB 4 [facility] Dr Joy [address] [place] [address] 06/24/2022 15:31:09 07/01/2022 08:36:07 Routine care 556365542 Z34.02 Teenage 709235 001 O09.619 --security services manager consult prior to discharge Anemia of 2734 2003 O99.019 --Continue iron daily Marijuana user 906707234 F12.90 --Encourag e cessation [id number] MD Polo Lindsey 14 OB 4 [facility] Dr Joy [address] [place] [address] 06/30/2022 14:18:13 07/15/2022 10:29:22 Routine care 395989807 Z34.02 Teenage 323535 001 O09.619 --security services manager consult prior to discharge Anemia of 2734 2003 O99.019 --Continue iron daily Marijuana user 495869187 F12.90 --Encourag e cessation [id number] MD Polo Lindsey 14 OB 4 [facility] Dr Joy [address] [place] [address] 07/07/2022 12:12:18 07/08/2022 10:19:52 Routine care 954814888 Z34.02 Teenage 574812 001 O09.619 --security services manager consult prior to discharge Anemia of 2734 2003 O99.019 --Continue iron daily Marijuana user 216602615 F12.90 --Encourag e cessation [id number] MD Polo Lindsey 14 OB 4 [facility] Dr Joy [address] [place] [address] 1 07/14/2022 16:15:36 07/15/2022 11:44:57 Routine care 972717605 Z34.02 Teenage [id number] 001 O09.619 --security services manager consult prior to discharge Anemia of 2734 2003 O99.019 --Continue iron daily Marijuana user 186270683 F12.90 --Encourag e cessation [id number] MD Polo Lindsey 14 OB 4 [facility] [place] [address] 07/21/2022 09:45:36 07/22/2022 09:47:11 Routine care 492132434 Z34.02 Teenage 169387 001 O09.619 --security services manager consult prior to discharge Anemia of 2734 2003 O99.019 --Continue iron daily Marijuana user 806157501 F12.90 --Encourag e cessation [id number] MD Polo Lindsey 14 OB 4 [facility] [address] [place] [address] 07/27/2022 17:14:12 08/16/2022 03:46:42 -induced hypertension 16429357 O13.9 --Continue procardia 30mg XL daily [id number] Alvina Campoverde LPN [place] 14 OB 4 [facility] [place] [address] 08/10/2022 16:39:00 08/13/2022 03:47:26 [id number] Ronnell Whatley MD Polo 14 OB 4 [facility] [place] [address] 09/02/2022 14:15:40 09/03/2022 09:29:03 care 698842653 Z39.2 --pt healing well Contracept ion care management 172208382 Z30.9 [id number] MD Neelima LEWIS (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) [address] Joy [address] [facility] [place] [address] 10/06/2022 14:43:08 10/07/2022 10:08:07 Eczema 29307209 L30.9 - Discussed basics of skin health, including moisturize r use on damp skin and frequent reapplicat ion of emollients throughout the day- Will add topical steroid to use on arms and hands x2 weeks- Okay to use OTC allergy medicine such as cetirizine as needed for itch- Follow up in 2 weeks to evaluate for change in symptoms; if not improved, consider topical such as tacrolimus [id number] CHASTITY Castle- Pool 14 OB 4 [facility] [place] [address] 10/14/2022 12:17:02 10/15/2022 08:40:31 Eczema 01311617 L30.9 Will refer to derm. Contracept ion care management 272079062 Z30.9 1. Reviewed all forms of control with patient including risk factors and side effects. 2. Counseled on STD transmissi on and prevention , condom use and prevention . 3. Pt would like to start with OCP. Educated on correct use and side effects. Will send rx to pharmacy. 4. Follow up for med check in 3 months or sooner if needed. [id number] MD Polo Lindsey 14 OB 4 [facility] [place] [address] 11/17/2023 15:16:08 11/25/2023 09:21:04 Contraception care management 287945776 Z30.9 --Pt would like depo provera--W ill RTC when on first day of menses Body mass index 20-24 - normal 403388828 Z68.22 Depression screening 171 003251 Z13.31 --PHQ9=2 [id number] RELL Farfan 14 OB 4 [facility] [place] [address] 12/09/2023 14:59:49 12/10/2023 09:50:57 Surveillance of depot contraception done 3927901214 9104 Z30.42 [id number] MD Polo Lindsey 14 OB 4 [facility] [place] [address] 03/07/2024 13:27:20 03/27/2024 07:35:17 Surveillance of depot contraception done 4681844613 9104 Z30.42 Health Concerns Section Related Observation LastModified by Organization Detai ls LastModified Time None Recorded Concern Status LastModified by Organization Details LastModified Time None Recorded Advance Directives Directive None Recorded Payers Encounter Date Sequence Insurance Name Policy Number Policy Astorga Covered Member ID Astorga Member ID Guarantor Name 10/06/2022 1 [facility] ON OR AFTER 11/14/20 (MEDICAID REPLACEMENT - HMO) Tammy Rios [id number] Tammy Rios 10/14/2022 1 [facility] ON OR AFTER 11/14/20 (MEDICAID REPLACEMENT - HMO) Tammy Rios [id number] Tammy Rios 11/17/2023 1 [facility] ON OR AFTER 11/14/20 (MEDICAID REPLACEMENT - HMO) Tammy Rios [id number] Tammy Rios 12/09/2023 1 [facility] ON OR AFTER 11/14/20 (MEDICAID REPLACEMENT - HMO) Tammy Rios [id number] Tammy Rios 03/07/2024 1 [facility] ON OR AFTER 11/14/20 (MEDICAID REPLACEMENT - HMO) Tammy Rios [id number] Tammy Rios Notes Date Note Type Note Provider Name and Address Organization Details Recorded Time 10/06/2022 text/html Eczema- Started getting worse after starting control patch- Itchy and red raised rash; was concerned about hives- Used petroleum jelly with occlusive dressing for 3 days in a row but did not notice significant improvement- Now using Dove sensitive skin fragrance free soap- Started taking 2 Benadryl every 4-6 hours and topical lidocaine, which has helped with the itching GURJIT AM MD Attn: [address] [place], [address], [facility] 10/06/2022 22:32:28 10/14/2022 text/html Annual GYNReport ed bypatient.Menstrual cycle:Normal menses Urinary symptoms:No hematuria; No incontinence Vulva:No genital lesion Vagina:Normal vaginal discharge Breast:No breast pain; No breast lump; No nipple discharge Sexual complaints:No sexual complaints; No pain during intercourse; Normal libido Menopausal Symptoms:No menopausal symptoms; Normal vaginal lubrication Psychological symptoms:No depression; No anxiety; No PMDD Preventive measures:Encourage self breast examination; Encourage regular exercise; Encourage no tobacco use; Encourage regular mammograms starting age [age] yo fe here for control discussion- was on control patch and had allergic reaction to adhesive- would like ocp- would like referral to derm for eczema CHASTITY Castle-BC Attn: Accounting[address], [place], [address], [place] [facility] 10/14/2022 14:28:17 11/17/2023 text/html Patient presents to discuss contraceptive options. She has used twirla and OCPs in the past but desires to use depo provera now. Ronnell Whatley MD Attn: [address], [place], [address], [place] [facility] 11/24/2023 14:10:30 OBGyn Episode Ob Episode Information Episode Created Date Number of Fetuses Patient Bloodtype Patient rh Status Prepregnancy Weight lbs Domestic Partner Domestic Partner Phone Father Name Dispatcher Maintenance Service Status 12/23/19 22 1 DELETED Fetus Data First Name Last Name Admitted to NICU Weight (g) Sex Living Outcome Pediatric Complications Fetus ID Race Codes Race Delivery Type [id number] Janice Calculation Initial Janice Date Initial Exam Date Initial Exam Provider Initial Ultrasound Date Last Menstrual Period Date Ultra Sound Weeks Gestation 08/15/2022 12/22/2021 11/08/2021 0 Eighteen To Twenty Week Janice Update Ultra Sound Date Fundal Height At Umbil Quickening Date Ultra Sound Latest Weeks Gestation Final Janice Confirmed By Final Janice Confirmed Date Final Janice Date Ultra Sound Latest Days Gestation 0 08/16/19 23 0 Menstrual History Last Menstrual Date Menses Monthly On Bcp Conception Prior Menses Frequency Hcg Plus Date Menarche Onset Age 0611/08/2021 Delivery Information Delivery Date Delivery Type Labor Anesthesia Weeks Gestation Incision Type Labor Labor Length Hrs Delivered By Post Complications Tubal Sterilization Discharge Date Comments Discharge Information Feeding Method Contraceptive Method Maternal HG B and HCT Levels Ob Episode Information Episode Created Date Number of Fetuses Patient Bloodtype Patient rh Status Prepregnancy Weight lbs Domestic Partner Domestic Partner Phone Father Name Dispatcher Maintenance Service Status 12/24/19 22 1 O Positive CLOSED Fetus Data First Name Last Name Admitted to NICU Weight (g) Sex Living Outcome Pediatric Complications Fetus ID Race Codes Race Delivery Type Ana Luis f false 3319.74 [id number] F true Full Term 14550 2106-3 White Vaginal Problems Problem Notes bottle feeding , boy cir yes , advised not to change liter box , epidural? Problem Name Start Date End Date Resolution Snomed Code Not e Anemia of 04/20/2022 [id number] Marijuana user 02/09/2022 [id number] Teenage 12/18/2021 [id number] Janice Calculation Initial Janice Date Initial Exam Date Initial Exam Provider Initial Ultrasound Date Last Menstrual Period Date Ultra Sound Weeks Gestation 07/18/2022 12/23/2021 [email or web address] 01/14/2022 10/19/2021 13 Eighteen To Twenty Week Janice Update Ultra Sound Date Fundal Height At Umbil Quickening Date Ultra Sound Latest Weeks Gestation Final Janice Confirmed By Final Janice Confirmed Date Final Janice Date Ultra Sound Latest Days Gestation 02/28/20 22 20 [email or web address] 01/20/2022 07/19/19 23 1 Pre-samantha Flowsheet Flowsheet Date 01/08/2022 Bryson Score Blood Edema Fundus Height Fundus Units Glucose Ketones Leukocytes Nitrite Labor Signs Protein Cervic Dilation Cervic Effacement Cervic Station neg none none negative none neg 0cm Type Weight in lbs Pre/Post Dialysis Refused With clothes 133.027513602571 BP Diastolic BP Location Tested BP Systolic BP Type 60 102 sitting Fetus Heart Rate Present Fetus Movement Comments Patient presents for initial visit. CBE and pelvic exam performed. Nutritional counseling performed. Will obtain labs and schedule dating sonogram. RTC in 4 weeks. Flowsheet Date 01/14/2022 Bryson Score Blood Edema Fundus Height Fundus Units Glucose Ketones Leukocytes Nitrite Labor Signs Protein Cervic Dilation Cervic Effacement Cervic Station Type Weight in lbs Pre/Post Dialysis Refused Weight 116.768733855703 BP Diastolic BP Location Tested BP Systolic BP Type 80 102 sitting Fetus Heart Rate Present Fetus Movement Comments Flowsheet Date 02/09/2022 Bryson Score Blood Edema Fundus Height Fundus Units Glucose Ketones Leukocytes Nitrite Labor Signs Protein Cervic Dilation Cervic Effacement Cervic Station neg none none negative none neg Type Weight in lbs Pre/Post Dialysis Refused With clothes 122.522195621833 BP Diastolic BP Location Tested BP Systolic BP Type 74 106 sitting Fetus Heart Rate Present A 140's Present Fetus Movement Comments Patient denies any complaint s. NIPT and AFP today. Will schedule anatomy ultrasound. RTC in 4 weeks. Flowsheet Date 03/20/2022 Bryson Score Blood Edema Fundus Height Fundus Units Glucose Ketones Leukocytes Nitrite Labor Signs Protein Cervic Dilation Cervic Effacement Cervic Station neg none none negative none neg Type Weight in lbs Pre/Post Dialysis Refused With clothes 138.410459994688 BP Diastolic BP Location Tested BP Systolic BP Type 68 112 sitting Fetus Heart Rate Present A 150's Present Fetus Movement A Yes Comments Patient denies any complaint s. She admits to , denies VB, LOF and CTXs. labor precautions given. RTC in 4 weeks. Flowsheet Date 04/17/2022 Bryson Score Blood Edema Fundus Height Fundus Units Glucose Ketones Leukocytes Nitrite Labor Signs Protein Cervic Dilation Cervic Effacement Cervic Station neg none 26 cm none negative none 1+ Type Weight in lbs Pre/Post Dialysis Refused With clothes 143.517892904554 BP Diastolic BP Location Tested BP Systolic BP Type 68 106 sitting Fetus Heart Rate Present A 140's Present Fetus Movement A Yes Comments Patient denies any complaint s. She admits to FM, denies VB, LOF and CTXs. DMS and CBC today. Will send urine for urine culture. RTC in 3 weeks. Flowsheet Date 05/26/2022 Bryson Score Blood Edema Fundus Height Fundus Units Glucose Ketones Leukocytes Nitrite Labor Signs Protein Cervic Dilation Cervic Effacement Cervic Station Type Weight in lbs Pre/Post Dialysis Refused With clothes 149.934520582629 BP Diastolic BP Location Tested BP Systolic BP Type 72 108 sitting Fetus Heart Rate Present Fetus Movement Comments Flowsheet Date 05/27/2022 Bryson Score Blood Edema Fundus Height Fundus Units Glucose Ketones Leukocytes Nitrite Labor Signs Protein Cervic Dilation Cervic Effacement Cervic Station neg none 32 cm none negative none neg Type Weight in lbs Pre/Post Dialysis Refused With clothes 151.560815574118 BP Diastolic BP Location Tested BP Systolic BP Type 72 110 sitting Fetus Heart Rate Present A 140's Present Fetus Movement A Yes Comments Patient admits to FM, denies VB, LOF and CTXs. Tdap vaccine today. labor precautions given. RTC in 2 weeks. Flowsheet Date 06/10/2022 Bryson Score Blood Edema Fundus Height Fundus Units Glucose Ketones Leukocytes Nitrite Labor Signs Protein Cervic Dilation Cervic Effacement Cervic Station neg none 33 cm none negative Tanner Gale neg Type Weight in lbs Pre/Post Dialysis Refused With clothes 155.10564726515 BP Diastolic BP Location Tested BP Systolic BP Type 66 110 sitting Fetus Heart Rate Present A 120's Present Fetus Movement A Yes Comments Patient admits to FM, denies VB, LOF and CTXs. labor precautions given. RTC in 1 week. Flowsheet Date 06/17/2022 Bryson Score Blood Edema Fundus Height Fundus Units Glucose Ketones Leukocytes Nitrite Labor Signs Protein Cervic Dilation Cervic Effacement Cervic Station neg none 34 cm none negative none neg Type Weight in lbs Pre/Post Dialysis Refused With clothes 155.10501587882 BP Diastolic BP Location Tested BP Systolic BP Type 76 112 sitting Fetus Heart Rate Present A 130's Present Fetus Movement A Yes Comments Patient denies any complaint s. GBS and STD testing today. labor precautions given. RTC in 1 week. Flowsheet Date 06/24/2022 Bryson Score Blood Edema Fundus Height Fundus Units Glucose Ketones Leukocytes Nitrite Labor Signs Protein Cervic Dilation Cervic Effacement Cervic Station neg none 36 cm none negative none neg Type Weight in lbs Pre/Post Dialysis Refused With clothes 159.023741842821 BP Diastolic BP Location Tested BP Systolic BP Type 82 116 sitting Fetus Heart Rate Present A 140's Present Fetus Movement A Yes Comments Patient admits to FM, denies VB, LOF and CTXs. labor precautions given. RTC in 1 week. Flowsheet Date 06/30/2022 Bryson Score Blood Edema Fundus Height Fundus Units Glucose Ketones Leukocytes Nitrite Labor Signs Protein Cervic Dilation Cervic Effacement Cervic Station neg none 37 cm none negative none neg Type Weight in lbs Pre/Post Dialysis Refused With clothes 161.51569611489 BP Diastolic BP Location Tested BP Systolic BP Type 68 114 sitting Fetus Heart Rate Present A 140's Present Fetus Movement A Yes Comments Patient denies any complaint s. Labor precautions given. RTC in 1 week. Flowsheet Date 07/07/2022 Bryson Score Blood Edema Fundus Height Fundus Units Glucose Ketones Leukocytes Nitrite Labor Signs Protein Cervic Dilation Cervic Effacement Cervic Station trace none 38 cm none negative none neg 0cm Type Weight in lbs Pre/Post Dialysis Refused With clothes 163.745690264787 BP Diastolic BP Location Tested BP Systolic BP Type 60 104 sitting Fetus Heart Rate Present A 130's Present Fetus Movement A Yes Comments Patient admits to FM, denies VB, LOF and CTXS. Labor precautions given. RTC in 1 week. Flowsheet Date 07/14/2022 Bryson Score Blood Edema Fundus Height Fundus Units Glucose Ketones Leukocytes Nitrite Labor Signs Protein Cervic Dilation Cervic Effacement Cervic Station neg none 39 cm none negative none neg 0cm Type Weight in lbs Pre/Post Dialysis Refused With clothes 164.436236211840 BP Diastolic BP Location Tested BP Systolic BP Type 66 103 sitting Fetus Heart Rate Present A 130's Present Fetus Movement A Yes Comments Patient admits to FM, denies VB, LOF and CTXs. Labor precautions given. RTC in 1 week. Plan for IOL at 41 weeks. Flowsheet Date 07/21/2022 Bryson Score Blood Edema Fundus Height Fundus Units Glucose Ketones Leukocytes Nitrite Labor Signs Protein Cervic Dilation Cervic Effacement Cervic Station neg none 39 cm none negative none neg 1cm 50% - 3 Type Weight in lbs Pre/Post Dialysis Refused With clothes 163.016856975328 BP Diastolic BP Location Tested BP Systolic BP Type 72 111 sitting Fetus Heart Rate Present A 140's Present Fetus Movement A Yes Comments Patient admits to FM, denies VB, LOF and CTXs. Labor precautions given. IOL scheduled for Wednesday01/24/23 at 0600. Flowsheet Date 07/27/2022 Bryson Score Blood Edema Fundus Height Fundus Units Glucose Ketones Leukocytes Nitrite Labor Signs Protein Cervic Dilation Cervic Effacement Cervic Station Type Weight in lbs Pre/Post Dialysis Refused With clothes 145.336105957253 BP Diastolic BP Location Tested BP Systolic BP Type 81 L arm 117 sitting Fetus Heart Rate Present Fetus Movement Comments Flowsheet Date 09/02/2022 Bryson Score Blood Edema Fundus Height Fundus Units Glucose Ketones Leukocytes Nitrite Labor Signs Protein Cervic Dilation Cervic Effacement Cervic Station Type Weight in lbs Pre/Post Dialysis Refused Stated 148.011344369613 BP Diastolic BP Location Tested BP Systolic BP Type 67 L arm 114 sitting Fetus Heart Rate Present Fetus Movement Comments Menstrual History Last Menstrual Date Menses Monthly On Bcp Conception Prior Menses Frequency Hcg Plus Date Menarche Onset Age 0610/19/2021 true true 28 10 Genetic Screening And Infection History Question Response Note Patient's Age Will Be 35 Yea rs Or Older At Estimated Date of Delivery false Thalassemia (Welsh, Divehi, Mediterranean, Or Background): MCV < 80 false Neural Tube Defect (Meningom yelocele, Spina Bifida, Or Anencephaly) true Spina Bifida pt mother Congenital Heart Defect false Down Syndrome false Woody-Sachs (eg, Congregational, Cajun, Irish-Peruvian) t rue Irish-Peruvian pt Apolinar Disease false Sickle Cell Disease Or Trait () false Hemophilia Or Other Blood Disorders false Muscular Dystrophy false Cystic Fibrosis false Viktoriya's Chorea false Mental Retardation/Autism true Autism FOB MOB sibling If Yes, Was Person Tested For Fragile X? false Other Inherited Genetic Or Chromosomal Disorder false Maternal Metabolic Disorder (eg, Type 1 Diabetes, PKU) true MOB grandmother Patient Or Baby's Father Had A Child With Defects Not Listed Above false Recurrent Loss, Or A Stillbirth false Medications (including Suppl ements, Vitamins, Herbs, OTC Drugs), Illicit/Recreational Drugs, Alcohol true pnv If Yes, Agent(s) And Strength/Dosage false Any Other Genetic History false Live With Someone With TB Or Exposed To TB false Patient Or Partner Has History Of Genital Herpes false Rash Or Viral Illness Since Last Menstrual Perio d false History Of STD, Gonorrhea, Chlamydia, HPV, Syphi lis false Other Infection History false History of HIV false History of Hepatitis false Prior GBS-infected child false Delivery Information Delivery Date Delivery Type Labor Anesthesia Weeks Gestation Incision Type Labor Labor Length Hrs Delivered By Post Complications Tubal Sterilization Discharge Date Comments 3 Induce d Regional-Ep idural 40.4 false Ronnell Whatley MD None 07/24/2022 Discharge Information Feeding Method Contraceptive Method Maternal HG B and HCT Levels Bottle 10.8/30.7
--- OUTSIDE RECORDS SUMMARY | 2024-06-09 00:30 | XMS_ITS | Referral Summary ---
Author Organization [facility] Address [address] [place] [address] Care Team Providers Care Senior Care Assistant Name Role Phone Ronnell Reese MD Unavailable Margaret Obregon MD Primary Care Provider [phone] Allergies Active Allergy Reactions Criticality Noted Date Comments Other Rash Medium 06/06/2023 control patch - broke out into a rash (cannot remember the name of the medication but started with a t ) Medications senna-docusate (PERICOLACE) 8.6-50 mg Take 2 tablets by mouth 2 (two) times a day 60 tablet 4 Active Additional Information Patient not taking.Reported on 06/25/2023 acetaminophen 500 mg capsuleIndicatio ns:Pain Take 2 capsules (1,000 mg total) by mouth every 6 (six) hours 112 tablet 4 Active oxyCODONE (ROXICODONE) 5 mg immediate release tabletIndication s:Pain Take 1 tablet (5 mg total) by mouth every 6 (six) hours as needed for pain 20 tablet 4 Active Additional Information Patient not taking.Reported on 06/25/2023 triamcinolone (KENALOG) 0.1 % ointmentIndicati ons:Dermatitis, unspecified Apply topically daily (Body). 454 g 4 Active tacrolimus (PROTOPIC) 0.1 % ointmentIndicati ons:Dermatitis, unspecified Apply topically daily (Face). 30 g 2 4 Active naproxen (NAPROSYN) 500 mg tablet Take 1 tablet (500 mg total) by mouth 2 (two) times a day with meals 30 tablet 4 Active Active Problems Problem Noted Date Diagnosed Date Flexor tenosynovitis of finger 06/05/2023 Assessment & Plan (06/25/2023 10:29 AM BACON SKINNER): -Patient presents to clinic for a post hospital visit. She has been doing well and her finger has healed well. -No current signs and symptoms of active infection in her finger. -Reviewed most recent labs -Okay to stop antibiotics today as she has completed more than two weeks of treatment and her finger has healed well - Discussed with patient the rational for treatment, culture results, risk of recurrent infection, signs/symptoms of recurrent infection, and to contact ID clinic with any questions or concerns. Assessment & Plan (06/09/2023 12:04 PM BACON SKINNER): Tammy Lopez is an 17 y.o. female with a PMH of eczema affecting her hands, pre-eclampsia during her , presented with flexor tenosynovitis of right small finger s/p I&D of the right small finger. OR findings were notable scant cloudy fluid in the flexor tendon sheath. OR cxs are positive for GAS and MSSA. ID was consulted for antibiotic recommendations. Patient has a 10 months old baby but she does not breast feed. She was started post-operatively on vancomycin and cefepime, narrowed to vancomycin on 06/08, changed to PO Augmentin no 06/08. On admission ESR was 24 and CRP was 69.5. Was seen by dermatology and pustular lesions were swabbed and sent for VZV and HSV- both negative. Recommendations: - Continue amoxicillin-clavulanate (Augmentin) 875-125mg PO BID - ID is formally signing off but will continue to monitor patient peripherally while in house. Recommending to treat right small finger flexor tenosynovitis with 14 days (06/06/23-06/20/23) PO Augmentin or until seen at ID clinic. Do not stop antibiotics until seen by ID. Please see sign off note from 06/09 for complete recommendations. 40 weeks gestation of 07/22/2022 Encounter for elective induction of labor 2022 Family history of spina bifida 04/13/2022 Overview (04/13/2022): Per records pt's mother Family history of autism 04/13/2022 Marijuana use during 04/13/2022 High risk teen , second trimester 04/13 Overview (04/13/2022): [] Co-management vs. [] Full MFM Care; [] Red Team [] Blue Team Referring Provider: Ronnell Reese [phone] [] or Medicare Insurance [x] Dating Criteria: [place] 01/14/22 with JANICE 07/18/22 [x] Labs: Rh [O+], Ab [negative], Rubella [immune], HIV [non-reactive], HepBSAg [negative], RPR [non-reactive], Hep C [negative], Varicella [positive], GC/CT [negative/negative] [x] Genetic Screening: CF negative, NIPT negative, AFP negative [x] CBC/Hgb 12.7/36.8/plt 216 [] Early 1hr GTT (if indicated) [x] UCx: 01/08/22 negative [x] Pap: not indicated based on age [] LD ASA (if indicated) starting at 12 weeks: [] EPDS [ ]; PNBHS referral (if indicated) 2nd Tri Labs: [] Anatomy ultrasound: [] CBC/1hr gtt at 24-28wks: [] Flu Shot (Jan-Apr): [] Tdap (27-36wks): [] COVID Vaccine: [] Rhogam at 28 wks (if Rh neg): 3rd Tri Labs: [] CBC/HIV/RPR/T&S: [] GBS: [] GC/CT (if indicated): [] COVID testing: [] testing: Counseling [] MOD: [] Place of delivery: [] MOC: [] Method of feeding: [] Machine Binder Stripper: [] PP Depression Discussed: Abnormal ultrasound 04/13/2022 Immunizations Name Administration Dates Next Due DTaP / Hep B / IPV 07/13/2006,11/19/2005 DTaP / IPV 01/29/2010 DTaP, Unspecified 03/08/2007,04/02/2005 HPV9 05/04/2017,01/28/2016 Hep A, Ped Unspecified 01/29/2010,03/08/2007 Hep B, Adolescent or Pediatric 04/02/2005,2004 HiB 03/08/2007,11/19/2005,04/02/2005 Hib (PRP-OMP) 07/13/2006 IPV 04/02/2005 Influenza, Live, Intranasal, Quadrivalent 03/03/2013 Influenza, Quadrivalent, Spl it, Preservative Free, Intramuscular 05/04/2017,01/28/2016 Influenza, Split 01/29/2010 MMR 07/13/2006 MMRV 01/29/2010 Meningococcal MCV4P (Menactra) 12/18/2021,2015 Pneumococcal Conjugate 7-Valent 03/08/20 07,07/13/2006,11/19/2005,04/02 Tdap 01/28/2016 Varicella 03/08/2007 Social History Tobacco Use Types Packs/Day Years Used Date Smoking Tobacco: Never Smokeless Tobacco: Never Tobacco Cessation:Counseling Given: Not Answered [facility] TempoIQities Answer Date Recorded In the past 12 months has [employer], gas, oil, or water [employer] threatened to shut off services in your home? No 06/10/2023 Social Connection and Isolat ion Panel [NHANES] Answer Date Recorded In a typical week, how many times do you talk on the phone with family, friends, or neighbors? More than three times a week 06/10/2023 How often do you get togethe r with friends or relatives? More than three times a week 06/10/2023 How often do you attend chur or zoroastrian services? Never 06/10/2023 Do you belong to any clubs o r organizations such as mandaeism groups, unions, fraternal or athletic groups, or school groups? No 06/10/2023 How often do you attend meet ings of the clubs or organizations you belong to? Never 06/10/2023 Are you , , di vorced, , never , or living with a partner? Never 06/10/2023 AUDIT-C Answer Date Recorded Q1: How often do you have a drink containing alcohol? Never 06/06/2023 Q2: How many drinks containi ng alcohol do you have on a typical day when you are drinking? Patient does not drink 4 Q3: How often do you have si x or more drinks on one occasion? Never 06/06/2023 Overall Financial Resource Strain (CARDIA) Answe r Date Recorded How hard is it for you to pa y for the very basics like food, housing, medical care, and heating? Not very hard 06/10/2023 [facility] - Occupational Stress Questionnaire Answer Date Recorded Do you feel stress - tense, restless, nervous, or anxious, or unable to sleep at night because your mind is troubled all the time - these days? Not at all 07/22/2022 Exercise Vital Sign Answer Date Recorde d On average, how many days pe r week do you engage in moderate to strenuous exercise (like a brisk walk)? 0 days 07/22/2022 On average, how many minutes do you engage in exercise at this level? 0 min 07/22/2022 Hunger Vital Sign Answer Date Recorded Within the past 12 months, y ou worried that your food would run out before you got the money to buy more. Sometimes true Within the past 12 months, t he food you bought just didn't last and you didn't have money to get more. Sometimes true PRAPARE - Transportation Answer Date Re corded In the past 12 months, has l ack of transportation kept you from medical appointments or from getting medications? No 05/18 In the past 12 months, has l ack of transportation kept you from meetings, work, or from getting things needed for daily living? No 06/10/2023 Housing Stability Vital Sign Answer Bridger e Recorded In the last 12 months, was t here a time when you were not able to pay the mortgage or rent on time? No 06/10/2023 In the last 12 months, how many places have you lived? 1 06/10/2023 In the last 12 months, was t here a time when you did not have a steady place to sleep or slept in a skilled nursing (including now)? No 06/10/2023 Personal Safety Answer Date Recorded Have you ever been in or are you currently in a harmful physical or emotional relationship or is someone making you feel afraid or unsafe? Denies 10/05/2023 Comments No Sex and Gender Information Value Date Recorded Sex Assigned at Not on file Legal Sex Female 12:37 PM BACON SKINNER Gender Identity Not on file Sexual Orientation Not on file Last Filed Vital Signs Vital Sign Reading Time Taken Comments Blood Pressure 118/63 10/05/2023 5:03 PM CDT Pulse 68 10/05/2023 5:03 PM CDT Temperature 37 ??C (98.6 ??F) 10/05/2023 5:03 PM CDT Respiratory Rate 18 10/05/2023 5:03 PM CDT Oxygen Saturation 100% 10/05/2023 5:03 PM CDT Inhaled Oxygen Concentration - - Weight 61.2 kg (135 lb) 10/05/2023 2:21 PM CDT Height 162.6 cm (5' 4 ) 10/05/2023 2:21 PM CDT Body Mass Index 23.17 10/05/2023 2:21 PM CDT Body Mass Index Percentile 67.89% 10/05/2023 2: 21 PM CDT Growth Chart: [facility] (Girls, 2- 20 Years) Plan of Treatment Not on file Procedures Procedure Name Priority Date/Time Associated Diagnosis Comments HEPATITIS C ANTIBODY Routine 01/08/2022 from Last 3 Months or Most Recently Relevant to Health Maintenance Results * Hepatitis C antibody (01/08/2022) SCRIBED HCV ab negative Blood Ronnell Reese MD LAB MICROBIOLOGY - GEN ERAL ORDERABLES Final Result from Last 3 Months or Most Recently Relevant to Health Maintenance Insurance [facility] MEDICAID [facility] Advance Directives For more information, please contact: [phone] * Full Code (Latest Code Status on File) Date Activated Date Inactivated Comments 06/06/2023 2:45 AM 06/09/2023 8:07 PM * Full Code Date Activated Date Inactivated Comments 07/22/2022 10:51 PM 07/24/2022 7:02 PM * Full Code Date Activated Date Inactivated Comments 07/22/2022 10:31 PM 07/22/2022 10:51 PM Full CPR in case of cardiopulmonary arrest * Full Code Date Activated Date Inactivated Comments 07/22/2022 8:26 AM 07/22/2022 10:31 PM Full CPR in c ase of cardiopulmonary arrest Care Teams Senior Care Assistant Relationship Specialty Start Date End Date Margaret Obregon MD [address] [place] [address] PCP - General Obstetrics and Gynecology 06/05/23 Ronnell Reese MD [address] [place] [address] [address] [address] Near East Archeology Professor Obstetrics and Gynecology 07/24/22
--- OUTSIDE RECORDS SUMMARY | 2024-06-09 00:30 | XMS_ITS | Clinical Summary ---
Author Organization [facility] Address [address] [place] [address] Care Team Providers Care Lost And Found Clerk Name Role Phone Ronnell Reese MD Unavailable Margaret Obregon MD Primary Care Provider [phone] Allergies Active Allergy Reactions Criticality Noted Date [...] 06/05/2023 Assessment & Plan (06/25/2023 10:29 AM BLOW TORCH OPERATOR): -Patient presents to clinic for a post [...] concerns. Assessment & Plan (06/09/2023 12:04 PM BLOW TORCH OPERATOR): Tammy Lopez is an 17 y.o. female [...] [] Blue Team Referring Provider: Ronnell Reese [phone] [] or Medicare Insurance [x] Dating Criteria: [...] [] MOC: [] Method of feeding: [] Chemical Engineering Technician: [] PP Depression Discussed: Abnormal ultrasound 04/13/2022 [...] 7-Valent 03/08/20 07,07/13/2006,11/19/2005,04/02 Tdap 01/28/2016 Varicella 03/08/2007 Medical History Medical History Date Comments Anxiety Hypertension Family History Medical History Relation Name Comments No Known Problems Brother No Known Problems Father Atrial fibrillation Maternal Grandfather Hypertension Mother Diabetes Paternal Grandfather No Known Problems Sister Relation Name Status Comments Brother Father Maternal Grandfather Mother Paternal Grandfather Sister Social History Tobacco Use Types Packs/Day Years Used Date Smoking Tobacco: Never Smokeless Tobacco: Never Tobacco Cessation:Counseling Given: Not Answered [facility] Utilities Answer Date Recorded In the past 12 months has [employer], gas, oil, or water [email or web address] threatened to shut off services in your [...] 06/10/2023 How often do you attend chur ch or temple services? Never 06/10/2023 Do you belong to any clubs o r organizations such as uatsdin groups, unions, fraternal or athletic groups, or [...] you are drinking? Patient does not drink Q3: How often do you have si x or more drinks on one occasion? Never 06/06/2023 Overall Financial Resource Strain (CARDIA) Answe r Date Recorded How hard is it for you to pa y for the very basics like food, housing, medical care, and heating? Not very hard 06/10/2023 [facility] of Occupat ional Health - Occupational Stress [...] place to sleep or slept in a [place] health care facility (including now)? No 06/10/2023 Personal Safety Answer Date Recorded Have you ever been in or are you currently in a harmful physical or emotional relationship or is someone making you feel afraid or unsafe? Denies 10/05/2023 Comments No Sex and Gender Information Value Date Recorded Sex Assigned at Not on file Legal Sex Female 12:37 PM BLOW TORCH OPERATOR Gender Identity Not on file Sexual Orientation Not on file Obstetrics History Para Term AB IAB SAB Ectopic Multiple Livin g Live Births 1 1 1 0 1 1 Date Outcome GA Total Labor Labor//3rd Weight Sex Type Anes PTL Yessenia A1 A5 Name Clin 2022 Term 40w 4d 6h 41m 3h 43m/2h 55m/0h 03m 3.32 kg (7 lb 5.1 oz) F Vag-S pont Epidur al N Livin g 7 8 ESTEVAN IPS,G IRLBR OOKE Hardazar n, Ronnell heart MD Delivery Location:[facility]) Growth Chart Information Age Height Weight Dviuww-hyf-gisu th Percentile BMI Percentile Head Circum Head Circum Percentile Date 17 years 162.6 cm (5' 4 ) 61.2 kg (135 lb) 67.89%* 2023 17 years 162 cm (5' 3.78 ) 58.5 kg (129 lb) 60.28%* 2023 17 years 162.6 cm (5' 4 ) 59 kg (130 lb) 60.44%* 2023 17 years 162.6 cm (5' 4.02 ) 59 kg (130 lb) 60.43%* 2023 17 years 162.6 cm (5' 4 ) 59 kg (130 lb) 60.54%* 2023 16 years 162.6 cm (5' 4 ) 74.4 kg (164 lb) 92.41%* 2022 16 years 162.7 cm (5' 4.06 ) 66 kg (145 lb 9.6 oz) 83.23%* 2021 14 years 160 cm (5' 3 ) 50.8 kg (112 lb) 47.63%* 2019 13 years 48.8 kg (107 lb 9.4 oz) 2019 12 years 162.6 cm (5' 4 ) 49.9 kg (110 lb) 51.03%* 2017 * [facility] (Girls, 2-20 Years) Last Filed Vital Signs Vital Sign Reading [...] CDT Body Mass Index Percentile 67.89% 10/05/2023 2:2 1 PM CDT Growth Chart: [facility] (Girls, 2- 20 Years) Plan of Treatment Health Maintenance Due Date Last Done Comments Depression Screening 2004 Meningococcal B Vaccine (1 o f 2 - Patient Seeks Protection) 2020 Regular Well Visit/Exam 18-64 2022 Influenza Vaccine (#1) 2024 7, 01/28/2016, 03/03/2013, Additional history exists DTaP/Tdap/Td Vaccine (8 - Td or Tdap) 05/28/2032 05/28/2022, 01/28/2016, 01/29/2010, Additional history exists Pneumococcal vaccine <65 Completed 007, 07/13/2006, 11/19/2005, Additional history exists Varicella Vaccines Completed 01/29/2010, 03/08/2007 HPV Vaccines Completed 05/04/2017, 01/28/2016 Meningococcal Vaccine Completed 12/18/2021, 016 Hepatitis C Screening Completed 01/08/2022 Procedures Procedure Name Priority Date/Time Associated Diagnosis Comments HEPATITIS C ANTIBODY Routine 01/08/2022 from Last 3 Months or Most Recently Relevant to Health Maintenance Results * Hepatitis C antibody (01/08/2022) SCRIBED HCV ab negative Blood Ronnell Reese MD LAB MICROBIOLOGY - GEN ERAL ORDERABLES Final Result from Last 3 Months or Most Recently Relevant to Health Maintenance Insurance [facility] Advance Directives For more information, please contact: [phone] * Full Code (Latest Code Status on [...] c ase of cardiopulmonary arrest Care Teams Lost And Found Clerk Relationship Specialty Start Date End Date Margaret Obregon MD [address] [place] [address] PCP - General Obstetrics and Gynecology 06/05/23 Ronnell Reese MD [address] [facility] [address] RAFIQ Gould [address] [address] Chief Lock Tender Operator Obstetrics and Gynecology 07/24/22
== END 2024-06-07 13:52 | disposition home or self-care (01) ==
PROVIDERS: Emergency Provider Nurse Practitioner; PCP Family Medicine
DX: Z20.818 Contact with and (suspected) exposure to other bacterial communicable diseases (principal)
CPT/HCPCS: 87081; 87880; 99213; G0463

== ENCOUNTER 2024-06-22 18:07 | Emergency (ER) | payer OTHER, SELFPAY ==
--- OUTSIDE RECORDS SUMMARY | 2024-06-22 18:08 | XMS_ITS | Referral Summary ---
Author Organization [facility] Address [address] [place] [address] Care Team Providers Care Numerical Control Router Operator Name Role Phone Ronnell Reese MD Unavailable Margaret Obregon MD Primary Care Provider [phone] Allergies Active Allergy Reactions Criticality Noted Date [...] 06/05/2023 Assessment & Plan (06/25/2023 10:29 AM DOUBLE END TENONER SETTER): -Patient presents to clinic for a post [...] concerns. Assessment & Plan (06/09/2023 12:04 PM DOUBLE END TENONER SETTER): Tammy Lopez is an 17 y.o. female [...] [] Blue Team Referring Provider: Ronnell Reese [phone] [] or Medicare Insurance [x] Dating Criteria: [...] [] MOC: [] Method of feeding: [] Mounted Police Officer: [] PP Depression Discussed: Abnormal ultrasound 04/13/2022 [...] Tobacco: Never Tobacco Cessation:Counseling Given: Not Answered [facility] Allied Payment Networkities Answer Date Recorded In the past 12 months has [employer], gas, oil, or water [employer] threatened to shut off services in your [...] How often do you attend chur or islam services? Never 06/10/2023 Do you belong to any clubs o r organizations such as sabianist groups, unions, fraternal or athletic groups, or [...] care, and heating? Not very hard 06/10/2023 [facility] Occupat ional Health - Occupational Stress [...] place to sleep or slept in a halfway (including now)? No 06/10/2023 Personal Safety Answer Date Recorded Have you ever been in or are you currently in a harmful physical or emotional relationship or is someone making you feel afraid or unsafe? Denies 10/05/2023 Comments No Sex and Gender Information Value Date Recorded Sex Assigned at Not on file Legal Sex Female 12:37 PM DOUBLE END TENONER SETTER Gender Identity Not on file Sexual Orientation Not on file Last Filed Vital Signs Vital Sign Reading Time Taken Comments Blood Pressure 118/63 10/05/2023 5:03 PM CDT Pulse 68 10/05/2023 5:03 PM CDT Temperature 37 C (98.6 F) 10/05/2023 5:03 PM CDT Respiratory Rate 18 10/05/2023 5:03 PM CDT Oxygen Saturation 100% 10/05/2023 5:03 PM CDT Inhaled Oxygen Concentration - - Weight 61.2 kg (135 lb) 10/05/2023 2:21 PM CDT Height 162.6 cm (5' 4 ) 10/05/2023 2:21 PM CDT Body Mass Index 23.17 10/05/2023 2:21 PM CDT Body Mass Index Percentile 67.89% 10/05/2023 2: 21 PM CDT Growth Chart: [facility] (Girls, 2- [...] Most Recently Relevant to Health Maintenance Insurance [facility] MEDICAID [facility] Advance Directives For more information, please contact: [phone] * Full Code (Latest Code Status on [...] c ase of cardiopulmonary arrest Care Teams Numerical Control Router Operator Relationship Specialty Start Date End Date Margaret Obregon MD [address] [place] [address] PCP - General Obstetrics and Gynecology 06/05/23 Ronnell Reese MD [address] [facility] [place] [place] [address] Press Technician Obstetrics and Gynecology 07/24/22
--- OUTSIDE RECORDS SUMMARY | 2024-06-22 18:08 | XMS_ITS | Clinical Summary ---
Author Organization [facility] Address [address] [place] [address] Phone Care Team Providers Care Flat Knitter Helper Name Role Phone Humphrey Alston MD Primary [...] 77 11/06/2019 12:14 AM CDT Temperature 37.3 C (99.1 F) 11/05/2019 10:14 PM CDT Respiratory Rate 18 11/06/2019 12:1 [...] patient's age to complete this topic Insurance MEDICAID [facility] MEDICAID [facility] Care Teams Flat Knitter Helper Relationship Specialty Start Date End Date Humphrey Alston MD [address] [place] [id number] PCP - General Pediatrics 11/05/19
--- OUTSIDE RECORDS SUMMARY | 2024-06-22 18:09 | XMS_ITS | Clinical Summary ---
Author Organization [facility] Address [address] [place] [address] Care Team Providers Care Biomedical Instrument Technician Name Role Phone Ronnell Reese MD Unavailable Margaret Obregon MD Primary Care Provider [phone] Allergies Active Allergy Reactions Criticality Noted Date [...] 06/05/2023 Assessment & Plan (06/25/2023 10:29 AM POWER SEWING MACHINE OPERATOR): -Patient presents to clinic for a [...] concerns. Assessment & Plan (06/09/2023 12:04 PM POWER SEWING MACHINE OPERATOR): Tammy Lopez is an 17 y.o. [...] [] Blue Team Referring Provider: Ronnell Reese [phone] [] or Medicare Insurance [x] Dating Criteria: [...] [] MOC: [] Method of feeding: [] Fruit Buying Grader: [] PP Depression Discussed: Abnormal ultrasound 04/13/2022 [...] Tobacco: Never Tobacco Cessation:Counseling Given: Not Answered [facility] Utilities Answer Date Recorded In the past 12 months has [employer], gas, oil, or water [employer] threatened to shut off services in your [...] often do you attend chur ch or restorationism services? Never 06/10/2023 Do you belong to any clubs o r organizations such as pentecostal groups, unions, fraternal or athletic groups, or [...] care, and heating? Not very hard 06/10/2023 [facility] [place] of Occupat ional Health - Occupational Stress [...] place to sleep or slept in a half-way (including now)? No 06/10/2023 Personal Safety Answer Date Recorded Have you ever been in or are you currently in a harmful physical or emotional relationship or is someone making you feel afraid or unsafe? Denies 10/05/2023 Comments No Sex and Gender Information Value Date Recorded Sex Assigned at Not on file Legal Sex Female 12:37 PM POWER SEWING MACHINE OPERATOR Gender Identity Not on file Sexual [...] Hardazar n, Ronnell heart MD Delivery Location:This [facility] ([facility]) Growth Chart Information Age Height Weight Uzrias-ccy-jilh th Percentile BMI Percentile Head Circum Head [...] 49.9 kg (110 lb) 51.03%* 2017 * [facility] (Girls, 2-20 Years) Last Filed Vital Signs [...] 10/05/2023 2:2 1 PM CDT Growth Chart: [facility] (Girls, 2- 20 Years) Plan of Treatment [...] Most Recently Relevant to Health Maintenance Insurance [facility] [address] [place] [address] MEDICAID [facility] Advance Directives For more information, please contact: [phone] * Full Code (Latest Code Status on [...] c ase of cardiopulmonary arrest Care Teams Biomedical Instrument Technician Relationship Specialty Start Date End Date Margaret Obregon MD [address] [place] [address] PCP - General Obstetrics and Gynecology 06/05/23 Ronnell Reese MD [address] [place] [address] [address] RAFIQ [address] [address] Interior Designer Obstetrics and Gynecology 07/24/22
--- OUTSIDE RECORDS SUMMARY | 2024-06-22 18:09 | XMS_ITS | Data Portability ---
Author Organization [facility] Jan Rod Address [address] [place] [address] Care Team Providers Care Clay Modeler Name Role Phone CHACORTA RONNELL Package Lift Operator GURJIT MA Primary Care Provider Unavailab le Assessment No assessment recorded. Plan of Treatment Reminders Order Date Submit Date Provider Last Modified By Organization Details Last Modified Time Details Appointments Dental Proced ure 2024 02:00P M KEVEN JACOBO DMD Not available Not available Not available Prophy 30 2024 01:00P M KEVEN JACOBO DMD Not available Not available Not available Lab None record ed. Referral dermat ologis t referr al 2022 023 [place], [address] [place] [address], [address], 07/16/2023 10:27:52 Procedures None record ed. Surgeries None record ed. Imaging None record ed. Medication Orders Sprint ec (28) 0.25 mg-35 mcg tablet 2022 023 [email or web address] [id number], [address] [place], [address], 11/17/2023 15:28:22 triamc inolon e aceton leonel 0.1 % topica l ointme nt 2022 023 [email or web address] [id number], [address] [place], [address], 11/17/2023 15:28:54 Depo-P rovera 150 mg/mL intram uscula r suspen shirley 2023 024 [id number] [address] [place], [address], 06/19/2024 16:49:29 medrox yproge steron e 150 mg/mL intram uscula r suspen shirley 2023 024 [id number] [address] [place], [address], 06/19/2024 16:49:29 medrox yproge steron e 150 mg/mL intram uscula r syring e 2023 024 [email or web address] [id number], [address] [place], [address], 06/19/2024 17:08:53 Loestr in Fe 06/05 (28-Da y) 1 mg-20 mcg (21)/7 5 mg (7) tablet 2024 025 MARIBEL [id number], [address] [place], [address], 06/19/2024 17:08:51 Patient TargetsNo targets recorded. Patient InstructionsNo instructions recorded. 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 Problems Name Problem SNOMED Code Status Onset Date Resolution Date Notes Provider Name and Address Organization Details Recorded Time Eczema 42834814 Active 2016 RELL [place], [place] - [facility] 7 10:15:43 Teenage 178159616 Active 2021 CRISTO [place], [place] [facility] 3 14:25:01 38406584 Completed 202107/23/2022 Alvina Campoverde TYPING CHECKER [place], [place] [facility] 3 08:52:41 Teenage 861910560 Completed 2021 ASHLEY [place]A [place] [facility] 3 14:25:01 Marijuana user 297071045 Active 2021 ASHLEY [place] [facility] 3 14:25:01 Marijuana user 530974979 Completed 2021 Melva Beltran RMA [place] [facility] 3 14:25:01 Anemia of 95597961 Completed 2021 ASHLEY [place] [facility] 3 14:25:01 Anemia of 66774582 Active 2021 ASHLEY [place]A [place] [facility] 3 14:25:01 Problem [...] completed Not Available Not Available Not Available Loestrin Fe 20 (28-Day) 1 mg-20 mcg (21)/75 mg (7) tablet Take 1 tablet every day by oral route. 2024 active Not Available Not Available Not Avai lable metronidazo le 500 mg tablet Take 1 [...] MILLILITE R INTRAMUSC ULARLY EVERY 3 MONTHS 06/19 completed Not Available Not Available Not Available naproxen 500 mg tablet TAKE 1 [...] every 3 months by intramusc ular route. 06/19 completed Not Available Not Available Not Available nitrofurant oin monohydrate /macrocryst als 100 mg capsule 11/16 completed Not Available Not Available Not Available hydrocortis one 12/16 completed Not Available Not Available Not Available 28 mg iron-800 mcg tablet TAKE 1 TABLET BY MOUTH EVERY DAY 05/23 /2023 completed Not Available Not Available Not Available [...] Available Not Available Vitals Date Recorded Body height Body mass index (BMI) Body mass index (BMI) Percentile per age and sex Body weight Systolic blood pressure Diastolic blood pressure Provider Name and Address Organization Details Last Updated DateTime 3 162.56 cm 25.2 kg/m2 83 % 70318.0 8 g 122 mm[Hg] 69 mm[Hg] CRISTO Matthews [place] - [facility] 3 12:26:41 Date Recorded Body height Body mass index (BMI) Percentile per age and sex Body mass index (BMI) Body weight Heart rate Systolic blood pressure Diastolic blood pressure Provider Name and Address Organization Details Last Updated DateTime 4 162.56 cm 57 % 22.1 kg/m2 94772.5 6 g 82 /min 103 mm[Hg] 66 mm[Hg] Yelitza bermudez [place] [facility] 4 15:26:47 Date Recorded Body height Body mass index (BMI) Percentile per age and sex Body mass index (BMI) Body weight Systolic blood pressure Diastolic blood pressure Provider Name and Address Organization Details Last Updated DateTime 4 162.56 cm 59 % 22.3 kg/m2 41305.4 4 g 114 mm[Hg] 69 mm[Hg] Kelly Aguirre [place] [facility] 4 15:12:09 Date Recorded Body height Body mass index (BMI) Body mass index (BMI) Percentile per age and sex Body weight Systolic blood pressure Diastolic blood pressure Provider Name and Address Organization Details Last Updated DateTime 4 162.56 cm 22.5 kg/m2 60 % 08572.0 3 g 103 mm[Hg] 63 mm[Hg] CRISTO Matthews [place] [facility] 4 13:48:27 Date Recorded Body height Body mass index (BMI) Percentile per age and sex Body mass index (BMI) Body weight Heart rate Systolic blood pressure Diastolic blood pressure Provider Name and Address Organization Details Last Updated DateTime 5 162.56 cm 62 % 22.7 kg/m2 08021.4 8 g 99 /min 101 mm[Hg] 69 mm[Hg] Yelitza bermudez [place] [facility] 5 16:48:18 Social History Question Answer Notes LastModified by Organizat ion Details LastModified Time Tobacco Smoking Status Never Smoker Suyapa Layne MA null, [place] [facility] 05/04/2017 10:18:06 What Is Your Level Of Alcohol Consumption? None Information not available 12/12/2020 Animal Exposure? Yes 3 Dogs, 2 Cats [email or web address] Information not available 05/04/2017 Do You Wear A Helmet When Biking? No Information not available 12/18/2021 Are You Or Have You Been Involved With Bullying? No [email or web address] Information not available 05/04/2017 What Is Your Level Of Caffeine Consumption? Moderate [email or web address] Information not available 05/04/2017 In The 14 [...] Type Of Diet Are You Following? REGULAR Information not available 05/04/2017 Which Illicit Or Recreational Drugs Have You Used? Marijuanna Information not available 12/12/2020 What Is The Highest Grade Or Level Of School You Have Completed Or The Highest Degree You Have Received? [id number] Information not available 12/18/2021 Have There Been Any Changes To Your Family Or Social Situation? No Information not available 01/08/2022 Are There Any Guns Present In Your Home? No [email or web address] Information not available 05/04/2017 What Is Your Home Situation? Both Parents Lives With Mom, Step Dad, 2 Half Brothers [email or web address] Information not available 05/04/2017 Do You Use Insect Repellent Routinely? Yes [email or web address] Information not available 05/04/2017 Car Seat Type Or Seat Belt? Seat Belt [email or web address] Information not available 05/04/2017 Parent Involvement? Dad Not Invloved Information not available 05/04/2017 Riding In Car Front Seat? Yes Information not available 05/04/2017 What Was The [...] You Have Any Siblings? 2 Half Brothers [email or web address] Information not available 05/04/2017 Do You Have Smoke And Carbon Monoxide Detectors In Your Home? Yes [email or web address] Information not available 05/04/2017 Are You Passively Exposed To Smoke? Yes [email or web address] Information not available 05/04/2017 Do You Participate In Social Media? Yes Information not available 12/18/2021 Do You Feel Stressed (tense, Restless, Nervous, Or Anxious, Or Unable To Sleep At Night)? [id number] Information not available 12/12/2020 Do You Use Any Illicit Or Recreational Drugs? Yes Pt States She Has Duane Jimenez 12/12/20 Information not available 12/12/2020 Do You Use Sunscreen Routinely? 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 Y Menses Monthly Y Sexual Problems? N LMP Definite Desired Control Method BCPs Obstetrics History GPAL:G 1 P 1 0 0 1 Type Value Multiple Births 0 Full Term 1 Induced 0 Spontaneous 0 Premature 0 Living 1 Ectopics 0 Total 1 Immunizations Vaccine Type Date Status Note Provider Nam e and Address Organization Details Recorded Time Influenza, split virus, quadrivalent, PF 6 completed GURJIT MA MD Attn: Accounting,[address] [facility], [place], [place], [address] [place] [address], [place] [facility] 05/26/2022 09:56:13 influenza, split (incl. purified surface antigen) 0 completed GURJIT MA MD Attn: Accounting,[address] [facility], [place], [place], [address] [place] [address], [place] [facility] 05/26/2022 09:56:13 Hep A, pediatric, unspecified formulation 7 completed GURJIT MA MD Attn: Accounting,[address] [facility], [place], [address] [place] [address], [place] [facility] 05/26/2022 09:56:13 meningococcal MCV4P 6 completed GURJIT MA MD Attn: Accounting,[address] [facility], [place], [address] [place] [address], [place] [facility] 05/26/2022 09:56:13 Hep A, pediatric, unspecified formulation 0 completed GURJIT MA MD Attn: Accounting,[address] [facility], [place], [address] [place] [address], [place] [facility] 05/26/2022 09:56:13 Influenza, live, quadrivalent, intranasal 3 completed GURJIT MA MD Attn: Accounting,[address] [facility], [place], [address] [place] [address], [place] [facility] 05/26/2022 09:56:13 HPV9 7 completed Not Available [facility] 06/03/2019 02:47:14 Influenza, split virus, quadrivalent, PF 7 completed Not Available [facility] 06/03/2019 02:34:51 meningococcal MCV4P 2 completed Suyapa [...] completed GURJIT MA MD Attn: Accounting,[address] [place], [address], [place] [facility] 05/26/2022 09:56:13 DTaP-IPV 0 completed Suyapa [place]ne [place] [facility] 05/04/2017 10:00:28 Hib, unspecified formulation 5 completed Suyapa [place] [facility] 05/04/2017 10:00:37 Hib, unspecified formulation 6 completed Suyapa [place] [facility] 05/04/2017 10:00:43 Hib, unspecified formulation 7 completed Suyapa [place] [facility] 05/04/2017 10:00:47 Hib (PRP-OMP) 7 completed GURJIT MA MD Attn: Accounting,[address] [place], [address], [place] [facility] 05/26/2022 09:56:13 Hep A, ped/adol, 2 dose 7 completed GURJIT MA MD Attn: Accounting,[address] [place], [address], [place] [facility] 05/26/2022 09:56:13 Hep A, ped/adol, 2 dose 0 completed GURJIT MA MD Attn: Accounting,[address] [place], [address], [place] [facility] 05/26/2022 09:56:13 Hep B, adolescent or pediatric 5 completed Suyapa [place] [facility] 05/04/2017 10:01:25 Hep B, adolescent or pediatric 5 completed Suyapa [place] [facility] 05/04/2017 10:01:32 HPV9 6 completed GURJIT MA MD Attn: Accounting,[address] [facility], [place], [address], [place] [facility] 05/26/2022 09:56:13 influenza, unspecified formulation 0 completed GURJIT MA MD Attn: Accounting,[address] [facility], [place], [address], [place] [facility] 05/26/2022 09:56:13 influenza, unspecified formulation 3 completed GURJIT MA MD Attn: Accounting,[address] [facility], [place], [address], [place] [facility] 05/26/2022 09:56:13 MMR 7 completed GURJIT MA MD Attn: Accounting,[address] [facility], [place], [address], [place] [facility] 05/26/2022 09:56:13 MMRV 0 completed Suyapa [place] [facility] 05/04/2017 10:02:22 meningococcal MCV4, unspecified formulation 6 completed GURJIT MA MD Attn: Accounting,[address] [facility], [place], [address], [place] [facility] 05/26/2022 09:56:13 pneumococcal conjugate PCV 7 5 completed Suyapa [place] [facility] 05/04/2017 10:02:47 pneumococcal conjugate PCV 7 6 completed Suyapa [place] [facility] 05/04/2017 10:02:50 pneumococcal conjugate PCV 7 7 completed GURJIT MA MD Attn: Accounting,[address] [facility], [place], [address], [place] [facility] 05/26/2022 09:56:13 pneumococcal conjugate PCV 7 7 completed Suyapa RELL [place] [facility] 05/04/2017 10:02:59 IPV 5 completed Suyapa [place] [facility] 05/04/2017 10:03:09 Tdap 6 completed GURJIT MA MD Attn: Accounting,[address] [facility], [place], [address], [place] [facility] 05/26/2022 09:56:13 varicella 7 completed Suyapa [place] [facility] 05/04/2017 10:03:32 Past Encounters Encounter ID Performer Location Encounter Start Date Encounter Closed Date Diagnosis/Indication Diagnosis SNOMED-CT Code Diagnosis ICD10 Code Diagnosis Note [id number] MD Neelima Fulton (Peds) [address] [place] [address] 05/04/2017 09:57:14 05/05/2017 08:35:04 Well child 758318579 Z00.129 discussed routine childcare center director discussed safety and school performanc e discussed healthy weight with diet and exercise Dysmenorrhea 579057156 N 94.6 discussed cycles with pt and mother. discussed using ibuprofen 2 days prior to onset to alleviate pain. [id number] MD Zoie Fultonhalto (Peds) [address] [place] [address] 12/16/2018 14:25:57 12/19/2018 10:30:27 Well child 293106266 Z00.129 discussed routine childcare center director discussed safety and school performanc e discussed healthy weight with diet and exercise Dysmenorrhea 288511968 N 94.6 discussed cycles with pt and mother. discussed using ibuprofen 2 days prior to onset to alleviate pain. Diet education 09535765 Z71.3 Exercises education, guidance, and counseling 476583133 Z71.82 [id number] [facility] [address] [place] [address] 03/02/2019 16:18:14 03/03/2019 11:42:10 Upper respiratory infection 76613182 J06.9 rest, tylenol prn, humidifier , vitmain c, etc [id number] [facility] [address] Joy [address] [place] [address] 07/27/2019 16:00:43 07/28/2019 09:30:48 Upper respiratory infection 36997161 J06.9 rest, tylenol prn, humidifier , vitmain c, etc [id number] Lorin Ortez (PHYSICAL SCIENCES INSTRUCTOR) [address] Joy [address] [place] [address] 12/12/2020 10:48:45 12/13/2020 04:20:58 Initial prescription of oral contraception 439039322 Z30.011 control options discussed. Pt. wants pills. Rx sent to pharmacy. Instructio ns discussed. Venereal d isease screening 661425930 Z11.3 Telephone visit one week for results. Missed period 22437391 N 92.5 UPT negative, dwp. [id number] Lorin Ortez (PHYSICAL SCIENCES INSTRUCTOR) [address] Joy [address] [place] [address] 12/19/2020 08:08:26 12/26/2020 14:45:15 Bacterial vaginosis 589503923 N76.0 Diagnosis d/w pt. Rx sent to pharmacy. Instructio ns discussed. Venereal d isease screening 945074638 Z11.3 Vaginal culture was negative for gonorrhea, chlamydia, and trichomona s, dwp. STD panel was also completely negative. Individual test results dwp. [id number] [facility] [address] [place] [address] 12/18/2021 10:27:00 12/19/2021 08:00:27 Well child visit 330735894 Z00.129 discussed routine adolescent carediscus sed safety and school performanc ediscussed healthy weight Diet education 84378760 Z71.3 Exercises education, guidance, and counseling 154345604 Z71.82 Teenage 659691 001 O09.619 pt states she has appt arranged with PHYSICAL SCIENCES INSTRU[employer] DR [place]. [id number] MD Polo Lindsey [address] [place] [address] Dr Joy [address] [place] [address] 01/08/2022 09:48:27 01/12/2022 07:55:01 Routine care 331881762 Z34.91 Vaginal discharge 967138 006 N89.8 [id number] MD Polo Hernandez 14 IM [address] [facility] [place] [address] 01/14/2022 11:04:01 01/15/2022 10:10:13 Routine care 582305051 Z34.91 Tammy is a 16y/o presenting @ 12+3 dated by LMP; here for dating US.- US consistent with IUP 13+4 with JANICE 07/18/2012- recommend change of dates for >7 days difference . OB episode updated. [id number] MD Polo Lindsey 14 OB [address] [facility] [address] Joy [address] [place], [place] [address], [place] [address] 02/09/2022 10:06:04 02/11/2022 09:18:22 Routine care 239484746 Z34.91 Marijuana user 533969805 F12.90 --Encourag e cessation Teenage 463571 001 O09.371 [id number] MD Polo Lindsey 14 OB [address] [facility] [address] Joy [address] [place], [place] [address], [place] [address] 03/20/2022 10:34:52 03/23/2022 16:42:10 Routine care 833034658 Z34.02 At increas ed risk of urinary tract infection 896571492 Z91.89 Marijuana user 675702509 F12.90 --Encourag e cessation Teenage 632233 001 O09.597 [id number] MD Polo Lindsey 14 OB [address] [facility] [address] Joy [address] [place], [place] [address], [place] [address] 04/17/2022 09:54:54 04/21/2022 09:31:24 Routine care 573607460 Z34.02 At increas ed risk of urinary tract infection 219061635 Z91.89 [id number] MD Zoie LEWIShalto (PHYSICAL SCIENCES INSTRUCTOR) [address] [place] [address] 05/26/2022 09:46:37 05/28/2022 11:08:04 Eczema 19726440 L30.9 - Suspect atopic dermatitis related to [...] such as cetirizine as needed for itch [id number] MD Polo Lindsey 14 OB [address] [facility] [place] [address] 05/27/2022 16:30:39 05/28/2022 09:39:19 Routine care 665009316 Z34.02 Administra tion of diphtheria, pertussis, and tetanus vaccine 321293806 Z23 Anemia of 2732003 O99.019 --Continue iron daily Marijuana user 054839604 F12.90 --Encourag e cessation Teenage 178165 001 O09.619 --director field services consult prior to discharge [id number] MD Polo Lindsey [address] [place] [address] Dr Joy [address] [place], [place] [address], [place] [address] 06/10/2022 14:03:07 06/11/2022 09:45:14 Routine care 929286275 Z34.02 Anemia of 2733 2003 O99.019 --Continue iron daily Marijuana user 832504089 F12.90 --Encourag e cessation Teenage 797921 001 O09.619 --director field services consult prior to discharge [id number] MD Polo Lindsey [address] [place] [address] Dr Joy [facility] [place] [address] 06/17/2022 15:01:56 06/18/2022 09:17:16 Routine care 856954551 Z34.02 At [facility] risk of urinary tract infection 505626852 Z91.89 Teenage 022018 001 O09.619 --director field services consult prior to discharge Anemia of 2734 2003 O99.019 --Continue iron daily Marijuana user 396971742 F12.90 --Encourag e cessation [id number] MD Polo Lindsey [address] [place] [address] [place] [address] 06/24/2022 15:31:09 07/01/2022 08:36:07 Routine care 092985854 Z34.02 Teenage 658385 001 O09.619 --director field services consult prior to discharge Anemia of 2734 2003 O99.019 --Continue iron daily Marijuana user 640963872 F12.90 --Encourag e cessation [id number] MD Polo Lindsey 14 OB [address] [facility] [address] Joy [address] [place] [address] 06/30/2022 14:18:13 07/15/2022 10:29:22 Routine care 860822594 Z34.02 Teenage 222809 001 O09.619 --director field services consult prior to discharge Anemia of 2734 2003 O99.019 --Continue iron daily Marijuana user 905426802 F12.90 --Encourag e cessation [id number] MD Polo Lindsey 14 OB [address] [facility] [address] Joy [address] [place] [address] 07/07/2022 12:12:18 07/08/2022 10:19:52 Routine care 628587831 Z34.02 Teenage 973732 001 O09.619 --director field services consult prior to discharge Anemia of 2734 2003 O99.019 --Continue iron daily Marijuana user 724393229 F12.90 --Encourag e cessation [id number] MD Polo Lindsey 14 OB [address] [facility] [place] [address] 07/14/2022 16:15:36 07/15/2022 11:44:57 Routine care 023144841 Z34.02 Teenage 643062 001 O09.619 --director field services consult prior to discharge Anemia of 2734 2003 O99.019 --Continue iron daily Marijuana user 615482054 F12.90 --Encourag e cessation [id number] MD Polo Lindsey 14 OB [address] [facility] [place] [address] 07/21/2022 09:45:36 07/22/2022 09:47:11 Routine care 651148337 Z34.02 Teenage 880797 001 O09.619 --director field services consult prior to discharge Anemia of 2734 2003 O99.019 --Continue iron daily Marijuana user 836977192 F12.90 --Encourag e cessation [id number] Ronnell Reese MD [place] [address] [place] [address] [address] Joy [address] [place], [place] [address], [place] [address] 07/27/2022 17:14:12 08/16/2022 03:46:42 -induced hypertension 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 (PHYSICAL SCIENCES INSTRUCTOR) [address] [place] [address] 10/06/2022 14:43:08 10/07/2022 10:08:07 Eczema 01074749 L30.9 - Discussed basics of skin health, [...] not improved, consider topical such as tacrolimus [id number] [facility] [address] [place] [address] [address] Joy [address] [place], [place] [address], [place] [address] 10/14/2022 12:17:02 10/15/2022 08:40:31 Eczema 43383609 L30.9 Will refer to derm. Contracept ion care management 052510754 Z30.9 1. Reviewed all forms of control with patient including risk factors and side effects. 2. Counseled on STD transmissi on and prevention , condom use and prevention . 3. Pt would like to start with OCP. Educated on correct use and side effects. Will send rx to pharmacy. 4. Follow up for med check in 3 months or sooner if needed. [id number] MD Polo Lindsey 14 OB [address] [facility] [place] [address] 11/17/2023 15:16:08 11/25/2023 09:21:04 Contraception care management 523167619 Z30.9 --Pt would like depo provera--W ill RTC when on first day of menses Body mass index 20-24 - normal 480940044 Z68.22 Depression screening 171 880849 Z13.31 --PHQ9=2 [id number] RELL Farfan [address] [place] [address] [place] [address] 12/09/2023 14:59:49 12/10/2023 09:50:57 Surveillance of depot contraception done 6170736665 9104 Z30.42 [id number] MD Polo Lindsey [address] [place] [address] 03/07/2024 13:27:20 03/27/2024 07:35:17 Surveillance of depot contraception done 8967644040 9104 Z30.42 [id number] MD Polo Lindsey [address] [place] [address] 06/19/2024 16:31:54 06/20/2024 17:46:50 Contraception care management 685256376 Z30.9 Body mass index 20-24 - normal 088399376 Z68.22 Depression screening 171 801636 Z13.31 --PHQ9=2 Health Concerns Section Related Observation LastModified by Organization Detai ls LastModified Time None Recorded Concern Status LastModified by Organization Details LastModified Time None Recorded Advance Directives Directive None Recorded Payers Encounter Date Sequence Insurance Name Policy Number Policy Astorga Covered Member ID Astorga Member ID Guarantor Name 10/14/2022 1 [facility] ON OR AFTER 11/14/20 (MEDICAID REPLACEMENT - HMO) Tammy Rios [id number] Tammy Rios 11/17/2023 1 [facility] ON OR AFTER 11/14/20 (MEDICAID REPLACEMENT - HMO) Tammy Rios [id number] Tammy Rios 12/09/2023 1 [facility] ON OR AFTER 11/14/20 (MEDICAID REPLACEMENT - HMO) Tammypeter Rios [id number] Tammy Rios 03/07/2024 1 [facility] ON OR AFTER 11/14/20 (MEDICAID REPLACEMENT - HMO) Tammy Rios [id number] Tammypeter Rios 06/19/2024 1 [facility] - [facility] ON OR AFTER 11/14/20 (MEDICAID REPLACEMENT - HMO) Tammy Rios [id number] Tammy Rios Notes Date Note Type Note Provider Name and Address Organization Details Recorded Time 10/14/2022 text/html Annual GYNReport ed bypatient.Menstrual cycle:Normal [...] like referral to derm for eczema CHASTITY Castle- Attn: Accounting[address] [place], [address], [facility] 10/14/2022 14:28:17 11/17/2023 text/html Patient presents to discuss contraceptive options. She has used twirla and OCPs in the past but desires to use depo provera now. Ronnell Reese MD Attn: [address]ing[address] [place], [address], [place] 11/24/2023 14:10:30 06/19/2024 text/html Patient presents to discuss contraceptive options. She desires to start OCPs. She denies any other complaints. Ronnell Reese MD Attn: Accounting[address] [place], [address], [facility] 06/20/2024 17:46:48 OBGyn Episode Ob Episode Information Episode Created Date Number of Fetuses Patient Bloodtype Patient rh Status Prepregnancy Weight lbs Domestic Partner Domestic Partner Phone Father Name Transportation Superintendent Status 12/23/19 22 1 DELETED Fetus Data First Name Last Name Admitted to NICU Weight (g) Sex Living Outcome Pediatric Complications Fetus ID Race Codes Race Delivery Type [id number] Janice Calculation Initial Janice Date Initial Exam [...] Domestic Partner Domestic Partner Phone Father Name Transportation Superintendent Status 12/24/19 22 1 O Positive CLOSED Fetus Data First Name Last Name Admitted to NICU Weight (g) Sex Living Outcome Pediatric Complications Fetus ID Race Codes Race Delivery Type Ana Luis f false [id number] [id number] F true Full Term [id number] [id number] White Vaginal Problems Problem Notes bottle feeding , boy cir yes , advised not to change liter box , epidural? Problem Name Start Date End Date Resolution Snomed Code Not e Anemia of 04/20/2022 [id number] Marijuana user 02/09/2022 [id number] Teenage 12/18/2021 [id number] Janice Calculation Initial Janice Date Initial Exam Date Initial Exam Provider Initial Ultrasound Date Last Menstrual Period Date Ultra Sound Weeks Gestation 07/18/2022 12/23/2021 [email or web address] 01/14/2022 10/19/2021 13 Eighteen To Twenty Week Janice Update Ultra Sound Date Fundal Height At Umbil Quickening Date Ultra Sound Latest Weeks Gestation Final Janice Confirmed By Final Janice Confirmed Date Final Janice Date Ultra Sound Latest Days Gestation 02/28/20 22 20 [email or web address] 01/20/2022 07/19/19 23 1 Pre- Flowsheet Flowsheet Date 01/08/2022 Bryson Score Blood Edema Fundus Height Fundus Units Glucose Ketones Leukocytes Nitrite Labor Signs Protein Cervic Dilation Cervic Effacement Cervic Station neg none none negative none neg 0cm Type Weight in lbs Pre/Post Dialysis Refused With clothes 133.880694377071 BP Diastolic BP Location Tested BP Systolic [...] Weight in lbs Pre/Post Dialysis Refused Weight 116.077115387031 BP Diastolic BP Location Tested BP Systolic BP Type 80 102 sitting Fetus Heart Rate Present Fetus Movement Comments Flowsheet Date 02/09/2022 Bryson Score Blood Edema Fundus Height Fundus Units Glucose Ketones Leukocytes Nitrite Labor Signs Protein Cervic Dilation Cervic Effacement Cervic Station neg none none negative none neg Type Weight in lbs Pre/Post Dialysis Refused With clothes 122.737440741125 BP Diastolic BP Location Tested BP Systolic [...] in lbs Pre/Post Dialysis Refused With clothes 138.791188017844 BP Diastolic BP Location Tested BP Systolic [...] in lbs Pre/Post Dialysis Refused With clothes 143.455641113368 BP Diastolic BP Location Tested BP Systolic BP Type 68 106 sitting Fetus Heart Rate Present A 140's Present Fetus Movement A Yes Comments Patient denies any complaint s. She admits to , denies VB, LOF and CTXs. DMS and CBC today. Will send urine for urine culture. RTC in 3 weeks. Flowsheet Date 05/26/2022 Bryson Score Blood Edema Fundus Height Fundus Units Glucose Ketones Leukocytes Nitrite Labor Signs Protein Cervic Dilation Cervic Effacement Cervic Station Type Weight in lbs Pre/Post Dialysis Refused With clothes 149.970133577271 BP Diastolic BP Location Tested BP Systolic BP Type 72 108 sitting Fetus Heart Rate Present Fetus Movement Comments Flowsheet Date 05/27/2022 Bryson Score Blood Edema Fundus Height Fundus Units Glucose Ketones Leukocytes Nitrite Labor Signs Protein Cervic Dilation Cervic Effacement Cervic Station neg none 32 cm none negative none neg Type Weight in lbs Pre/Post Dialysis Refused With clothes 151.680804485193 BP Diastolic BP Location Tested BP Systolic BP Type 72 110 sitting Fetus Heart Rate Present A 140's Present Fetus Movement A Yes Comments Patient admits to , denies VB, LOF and CTXs. Tdap vaccine today. labor precautions given. RTC in 2 weeks. Flowsheet Date 06/10/2022 Bryson Score Blood Edema Fundus Height Fundus Units Glucose Ketones Leukocytes Nitrite Labor Signs Protein Cervic Dilation Cervic Effacement Cervic Station neg none 33 cm none negative [place] Gale neg Type Weight in lbs Pre/Post Dialysis Refused With clothes 155.25123923966 BP Diastolic BP Location Tested BP Systolic BP Type 66 110 sitting Fetus Heart Rate Present A 120's Present Fetus Movement A Yes Comments Patient admits to , denies VB, LOF and CTXs. labor precautions given. RTC in 1 week. Flowsheet Date 06/17/2022 Bryson Score Blood Edema Fundus Height Fundus Units Glucose Ketones Leukocytes Nitrite Labor Signs Protein Cervic Dilation Cervic Effacement Cervic Station neg none 34 cm none negative none neg Type Weight in lbs Pre/Post Dialysis Refused With clothes 155.66235781669 BP Diastolic BP Location Tested BP Systolic [...] in lbs Pre/Post Dialysis Refused With clothes 159.658975344934 BP Diastolic BP Location Tested BP Systolic [...] in lbs Pre/Post Dialysis Refused With clothes 161.21113346137 BP Diastolic BP Location Tested BP Systolic [...] in lbs Pre/Post Dialysis Refused With clothes 163.991969569762 BP Diastolic BP Location Tested BP Systolic [...] in lbs Pre/Post Dialysis Refused With clothes 164.753998692097 BP Diastolic BP Location Tested BP Systolic [...] in lbs Pre/Post Dialysis Refused With clothes 163.307557394319 BP Diastolic BP Location Tested BP Systolic [...] in lbs Pre/Post Dialysis Refused With clothes 145.070067686214 BP Diastolic BP Location Tested BP Systolic BP Type 81 L arm 117 sitting Fetus Heart Rate Present Fetus Movement Comments Flowsheet Date 09/02/2022 Bryson Score Blood Edema Fundus Height Fundus Units Glucose Ketones Leukocytes Nitrite Labor Signs Protein Cervic Dilation Cervic Effacement Cervic Station Type Weight in lbs Pre/Post Dialysis Refused Stated 148.945170346190 BP Diastolic BP Location Tested BP Systolic [...] At Estimated Date of Delivery false Thalassemia (Romanian, Hungarian, Mediterranean, Or Background): MCV < 80 false Neural Tube Defect (Meningom yelocele, Spina Bifida, Or Anencephaly) true Spina Bifida pt mother Congenital Heart Defect false Down Syndrome false Woody-Sachs (eg, Baptist, Cajun, Afghan-Fannin) t rue Afghan-Fannin pt Apolinar Disease false Sickle Cell Disease Or Trait () false Hemophilia Or Other Blood Disorders false Muscular Dystrophy false Cystic Fibrosis false [place]'s Chorea false Mental Retardation/Autism true Autism FOB [...] Induce d Regional-Ep idural 40.4 false Ronnell Reese MD None 07/24/2022 Discharge Information Feeding Method Contraceptive Method Maternal HG B and HCT Levels Bottle 10.8/30.7
--- OUTSIDE RECORDS SUMMARY | 2024-06-22 18:09 | XMS_ITS | Patient Health Summary ---
Author Organization [facility] Address [address] [place] [address] Care Team Providers Care Bread Packer Name Role Phone Humphrey Alston MD Primary Care Provider [phone] Note from [facility],non-owned Affiliates and Associated Physician Practices is amultiple site organization consisting of ambulatory clinics and hospital sitesin [place], [place], [place] and [place]. This disclosure is being madepursuant to the Care Everywhere program and may not contain all information available regarding this patient. Last updated 18.[facility] Social History Tobacco Use Types Packs/Day Years Used Date Smoking Tobacco: Never Assessed Sex and Gender Information Value Date Recorded Sex Assigned at Not on file Gender Identity Not on file Sexual Orientation Not on file Care Teams Bread Packer Relationship Specialty Start Date End Date Humphrey Alston MD [address] [phone] PCP - General Pediatrics 07/12/20
--- OUTSIDE RECORDS SUMMARY | 2024-06-22 18:09 | XMS_ITS | Referral Summary ---
Author Organization [facility] Address [address] [place] [address] Care Team Providers Care Spinner Iron Name Role Phone Humphrey Alston MD Primary Care Provider [phone] Source Comments [facility],non-owned Affiliates and Associated Physician Practices is amultiple site organization consisting of ambulatory clinics and hospital sitesin [place], [place], [place] and [place]. This disclosure is being madepursuant to the Care Everywhere program and may not contain all information available regarding this patient. Last updated 18.[facility] [employer] Social History Tobacco Use Types Packs/Day Years Used Date Smoking Tobacco: Never Assessed Sex and Gender Information Value Date Recorded Sex Assigned at Not on file Gender Identity Not on file Sexual Orientation Not on file Plan of Treatment Not on file Care Teams Spinner Iron Relationship Specialty Start Date End Date Humphrey Alston MD [address] [place] [phone] PCP - General Pediatrics 07/12/20
--- OUTSIDE RECORDS SUMMARY | 2024-06-22 18:09 | XMS_ITS | Clinical Summary ---
Author Organization [facility] Address [address] [place] [address] Care Team Providers Care Chainstitch Elastic Attacher Name Role Phone Humphrey Alston MD Primary Care Provider [phone] Source Comments [facility],non-owned Affiliates and Associated Physician Practices is amultiple site organization consisting of ambulatory clinics and hospital sitesin [place], [place], [place] and [place]. This disclosure is being madepursuant to the Care Everywhere program and may not contain all information available regarding this patient. Last updated 18.[facility] Social History Tobacco Use Types Packs/Day Years [...] age to complete this topic Care Teams Chainstitch Elastic Attacher Relationship Specialty Start Date End Date Humphrey Alston MD [address] [place] [phone] PCP - General Pediatrics 07/12/20
[2024-06-22 18:43] VITALS: BP 119/82; PULSE 107; RESP 16; TEMP 36.1; O2SAT 100
--- NOTE | 2024-06-22 18:54 | ED_ITS ---
HPI - URI/Sore Throat General Chief Complaint: Upper Respiratory Infection Stated Complaint: Cough/Fever/Sore Throat Time Seen by Provider: 06/22/24 18:54 Source: patient and RN notes reviewed Mode of arrival: ambulatory Limitations: no limitations History of Present Illness HPI Narrative: 18-year-old female presented for complaint of headache, sore throat, body aches, sinus pressure/congestion, cough, fever/chills. onset 4 days. Endorses family with influenza. Denies sob, wheezing, n/v/d. Taking ibuprofen and cough medicine MD elicited complaint: cough Related Data Home Medications ?Medication ?Instructions ?Recorded ?Confirmed ?Last Taken ?Type norethindrone 1 mg-ethinyl tablet 06/22/24 Unknown History estradiol 20 mcg (21)-iron 75 mg (7) tablet (Aurovela Fe 1-20 (28)) Allergies Allergy/AdvReac Type Severity Reaction Status Date / Time No Known Allergies Allergy Unknown Verified 06/22/24 19:00 Review of Systems Review of Systems: per [facility] Past Medical History Medical History No pertinent past medical history Surgical History Surgical History No pertinent past surgical history Family History Family History Mother Family history non-contributory Social History Social History Smoking status: Never smoker Alcohol intake: never Substance use: never Living arrangements: with family Gender identity (if verbalized by the patient): Female Spiritual care concerns: No Exam Narrative: GENERAL: well-appearing, nontoxic no acute distress. HEAD: Normocephalic EYES: PERRLA, conjunctivae clear ENT: Mucous membranes moist. TM pearly schwarz with dull light reflex bilaterally; no tragal tenderness. Oropharynx not erythematous without lesions or exudate, no drooling, no hoarseness, no trismus, uvula midline. No tripod positioning, muffled voice, soft palate or pharyngeal wall bulging NECK: Supple. No lymphadenopathy CHEST: Clear to auscultation, breath sounds equal. HEART: Regular rate and rhythm. No murmur heard. SKIN: Warm, dry, no rash. NEURO: Alert and oriented x3. PSYCH: Normal mood and affect Course Course Emergency Course: Patient is aware of diagnosis, understands and agrees to treatment plan. Anticipatory guidance given. Patient agrees to follow-up as directed and is aware of reasons to seek care at the emergency department. Portions of this record may have been created with voice recognition software Level of Care: Express Care Visit Vital Signs Vital signs: Vital Signs Temperature 97.0 F L 06/22/24 18:43 Pulse Rate 107 H 06/22/24 18:43 Respiratory Rate 16 06/22/24 18:43 Blood Pressure 119/82 06/22/24 18:43 Pulse Oximetry 100 06/22/24 18:43 Oxygen Delivery Room Air 06/22/24 18:43 Temperature 97.0 F L 06/22/24 18:43 Pulse Rate 107 H 06/22/24 18:43 Respiratory Rate 16 06/22/24 18:43 Blood Pressure 119/82 06/22/24 18:43 Pulse Oximetry 100 06/22/24 18:43 Oxygen Delivery Room Air 06/22/24 18:43 reviewed MDM - URI/Sore Throat MDM Narrative Medical decision making narrative: positive flu. Discussed physical exam findings. Advised supportive measures and signs/symptoms to go to the ER. Pt is appropriate for outpt treatment and f/u. Differential Diagnosis Differential diagnosis: Likely upper respiratory infection, sinusitis and viral infection Lab Data Labs: Lab Results 06/22/24 Range/Units 19:14 POC Influenza A Ag Positive (Negative) POC Influenza B Ag Negative (Negative) POC SARS CoV-2 Ag Negative (Negative) Discharge Plan Discharge Clinical Impression: Influenza Patient Disposition: Home, Self-Care Condition: Stable Instructions: Influenza (ED) Additional Instructions: Influenza positive You should avoid crowds until you are fever free for 24 hours without the use of fever reducing medications, or the symptoms are improved Rest. Drink plenty of fluids. Tylenol 1000mg every 8 hours as needed for pain/fever Recommend Flonase spray and Zyrtec (or Claritin/Dana) for sinus pressure/congestion over the counter Cough syrup may cause drowsiness; avoid driving or take it at night time. Follow up with your primary care provider as needed Go to the ER for worsening symptoms or concerns Patient Language: Turkish Prescriptions: No Action norethindrone-e.estradiol-iron [Aurovela Fe 1-20 (28)] 1 mg-20 mcg (21)/75 mg (7) tablet Follow-up/Referrals: Sabas,Margaret Gary MD [Primary Care Provider] - Time of Disposition: 19:18
[2024-06-22 19:15] LABS: EDCOVIDSCREEN Negative (Negative); EDINFLUASCREEN Positive (Negative); EDINFLUBSCREEN Negative (Negative)
== END 2024-06-22 19:25 | disposition home or self-care (01) ==
PROVIDERS: Emergency Provider Nurse Practitioner Family; PCP Family Medicine
DX: J11.1 Influenza due to unidentified influenza virus with other respiratory manifestations (principal); Z20.822 Contact with and (suspected) exposure to COVID-19
CPT/HCPCS: 87426; 87804; 99212; G0463

== ENCOUNTER 2024-10-02 12:25 | Emergency (ER) | payer OTHER, SELFPAY ==
--- OUTSIDE RECORDS SUMMARY | 2024-10-02 12:27 | XMS_ITS | Clinical Summary ---
Author Organization [facility] Address [address] [place] [address] Phone Care Team Providers Care Reliability Manager Name Role Phone Humphrey Alston MD Primary [...] PLAN MEDICAID [facility] Care Teams Reliability Manager Relationship Specialty Start Date End Date Humphrey Alston MD [address] [place] [id number] PCP - General Pediatrics 11/05/19
--- OUTSIDE RECORDS SUMMARY | 2024-10-02 12:27 | XMS_ITS | Referral Summary ---
Author Organization [facility] Address [address] [place] [address] Care Team Providers Care Delivery Table Feeder Name Role Phone Ronnell Reese MD Unavailable [phone] Margaret Obregon MD Primary Care Provider [phone] Allergies Active Allergy Reactions Criticality Noted Date [...] 06/05/2023 Assessment & Plan (06/25/2023 10:29 AM CUSTOMER RETENTION REPRESENTATIVE): -Patient presents to clinic for a post [...] concerns. Assessment & Plan (06/09/2023 12:04 PM CUSTOMER RETENTION REPRESENTATIVE): Tammy Lopez is an 17 y.o. female [...] [] Blue Team Referring Provider: Ronnell Reese [phone] [] or Medicare Insurance [x] Dating Criteria: [...] [] MOC: [] Method of feeding: [] Supervisor Insulation: [] PP Depression Discussed: Abnormal ultrasound 04/13/2022 Immunizations Immunization Administration Dates Next Due DTaP / Hep [...] Tobacco Cessation:Counseling Given: Not Answered [facility] [email or web address] Answer Date Recorded In the past 12 months has [employer], gas, oil, or water [employer] threatened to shut off services in your [...] How often do you attend chur or confucianist services? Never 06/10/2023 Do you belong to any clubs o r organizations such as zoroastrianism groups, unions, fraternal or athletic groups, or [...] care, and heating? Not very hard 06/10/2023 [facility] of Occupat ional Health - Occupational Stress [...] place to sleep or slept in a longterm (including now)? No 06/10/2023 Personal Safety Answer Date Recorded Have you ever been in or are you currently in a harmful physical or emotional relationship or is someone making you feel afraid or unsafe? Denies 10/05/2023 Comments No Sex and Gender Information Value Date Recorded Sex Assigned at Not on file Legal Sex Female 12:37 PM CUSTOMER RETENTION REPRESENTATIVE Gender Identity Not on file Sexual Orientation [...] 10/05/2023 2:2 1 PM CDT Growth Chart: CDC (Girls, 2- [...] Most Recently Relevant to Health Maintenance Insurance [facility] Member Subscriber Plan / Payer (Ef fective 2022-Present) Name:Tammy Rios Relation to Subscriber:Self Name:Tammy Rios Payer ID:[id number] (NAIC) Group ID:Not on file Type:MEDICAID RISK OTHER Address: ATTN: CLAIMS DEPT [address] [facility] [place] [id number] [facility] MEDICAID [facility] Advance Directives For more information, please contact: [phone] * Full Code (Latest Code Status on [...] c ase of cardiopulmonary arrest Care Teams Delivery Table Feeder Relationship Specialty Start Date End Date Margaret Obregon MD [address] [place] [phone] PCP - General Obstetrics and Gynecology 06/05/23 Ronnell Reese MD [address] [place] [address] [place] [address] Hematology Supervisor Obstetrics and Gynecology 07/24/22
--- OUTSIDE RECORDS SUMMARY | 2024-10-02 12:27 | XMS_ITS | Clinical Summary ---
Author Organization [facility] Address [address] [place] [address] Care Team Providers Care Dessert Cup Machine Feeder Name Role Phone Ronnell Reese MD Unavailable [phone] Margaret Obregon MD Primary Care Provider [phone] Allergies Active Allergy Reactions Criticality Noted Date [...] 06/05/2023 Assessment & Plan (06/25/2023 10:29 AM ENAMEL BUFFER): -Patient presents to clinic for a post [...] concerns. Assessment & Plan (06/09/2023 12:04 PM ENAMEL BUFFER): Tammy Lopez is an 17 y.o. female [...] [] Blue Team Referring Provider: Ronnell Reese [phone] [] or Medicare Insurance [x] Dating Criteria: [...] [] MOC: [] Method of feeding: [] Suit Attendant: [] PP Depression Discussed: Abnormal ultrasound 04/13/2022 [...] Tobacco: Never Tobacco Cessation:Counseling Given: Not Answered [facility] Utilities Answer Date Recorded In the past 12 months has [employer], gas, oil, or water [employer] threatened to shut off services in your [...] often do you attend chur ch or jew services? Never 06/10/2023 Do you belong to any clubs o r organizations such as religious groups, unions, fraternal or athletic groups, or [...] and heating? Not very hard 06/10/2023 [facility] [place] of Occupat ional Health - Occupational Stress [...] place to sleep or slept in a retirement (including now)? No 06/10/2023 Personal Safety Answer Date Recorded Have you ever been in or are you currently in a harmful physical or emotional relationship or is someone making you feel afraid or unsafe? Denies 10/05/2023 Comments No Sex and Gender Information Value Date Recorded Sex Assigned at Not on file Legal Sex Female 12:37 PM ENAMEL BUFFER Gender Identity Not on file Sexual Orientation [...] Hardazar n, Ronnell heart MD Delivery Location:This [facility]) Growth Chart Information Age Height Weight Uoytws-jwl-ppir th Percentile BMI Percentile Head Circum Head [...] kg (110 lb) 51.03%* 2017 * [facility] (Girls, 2-20 Years) Last Filed Vital Signs [...] 2:2 1 PM CDT Growth Chart: [facility] (Girls, 2- 20 Years) Plan of Treatment Health Maintenance Due Date Last Done Comments Depression Screening 2004 Meningococcal B Vaccine (1 o f 2 - Standard) 2020 Regular Well Visit/Exam 18-64 2022 Influenza Vaccine (Season Ended) 2025 05/04/2017, 01/28/2016, 03/03/2013, Additional history exists DTaP/Tdap/Td Vaccine (8 - Td or Tdap) 05/28/2032 05/28/2022, 01/28/2016, 01/29/2010, Additional history exists Hepatitis B Screening Completed 07/13/2006 , 11/19/2005, 04/02/2005, Additional history exists Pneumococcal vaccine <65 Completed [...] Most Recently Relevant to Health Maintenance Insurance [facility] MEDICAID [facility] Advance Directives For more information, please contact: [phone] * Full Code (Latest Code Status on [...] c ase of cardiopulmonary arrest Care Teams Dessert Cup Machine Feeder Relationship Specialty Start Date End Date Margaret Obregon MD [address] [place] [id number] PCP - General Obstetrics and Gynecology 06/05/23 Ronnell Reese MD [address] [id number] Custom Furrier Obstetrics and Gynecology 07/24/22
--- OUTSIDE RECORDS SUMMARY | 2024-10-02 12:28 | XMS_ITS | Data Portability ---
Author Organization [facility] Jan Rod Address [address] [place] [address] Care Team Providers Care Principal Software Architect Name Role Phone ANTONIETA WHATLEY Shaker Flatwork GURJIT MA Primary Care Provider Unavailab le Assessment No assessment recorded. Plan of Treatment Reminders Order Date Submit Date Provider Last Modified By Organization Details Last Modified Time Details Appointments Prophy 30 2024 01:00P M KEVEN JACOBO, DESIREE Not available Not available Not available Lab None record ed. Referral dermat ologis t referr al 2022 023 MARIBEL Carter MD, [address], [address], 07/16/2023 10:27:52 Procedures None record ed. Surgeries None record ed. Imaging None record ed. Medication Orders Loestr in Fe 06/05 (28-Da y) 1 mg-20 mcg (21)/7 5 mg (7) tablet [address] [facility]acy #[id number], [address] [place], [address], 06/19/2024 17:08:51 medrox yproge steron e 150 mg/mL intram uscula r syring e 2023 024 jhdana [facility]/Pharmacy #[id number], [address] [place], [address], 06/19/2024 17:08:53 medrox yproge steron e 150 mg/mL intram uscula r suspen shirley 2023 024 [id number] [address] [place], [address], 06/19/2024 16:49:29 Depo-P rovera 150 mg/mL intram uscula r suspen shirley 2023 024 [id number], [address] [place], [address], 06/19/2024 16:49:29 Sprint ec (28) 0.25 mg-0.0 35 mg tablet 2022 023 [id number], [address] [place], [address], 11/17/2023 15:28:22 triamc inolon e aceton leonel 0.1 % topica l ointme nt 2022 023 [id number] [address] [place], [address], 11/17/2023 15:28:54 Patient TargetsNo targets recorded. Patient InstructionsNo instructions recorded. Reason for Referral Assisted Living Manager Referral for E czema Referring Physician: Demetrice Cortez, Wire Brush Maker, Encounter Date: 10/14/2022 Results Created Date Observation Date Name Description Value Unit Range Abnormal Flag Note LastModifiedBy Organization Detail LastModifiedTime Result Notes None recorded. Problems Name Problem SNOMED Code Status Onset Date Resolution Date Notes Provider Name and Address Organization Details Recorded Time Eczema 07432540 Active 2016 Suypaa Lay[place], [place] [facility] 7 10:15:43 Teenage 479789088 Active 2021 CRISTO [place] [facility] 3 14:25:01 13320518 Completed 202107/23/2022 Alvina Gilles, [employer] C[employer] HAND [place] [facility] 3 08:52:41 Teenage 794373695 Completed 2021 CRISTO [place] [facility] 3 14:25:01 Marijuana user 835958685 Active 2021 CRIST[place] [facility] 3 14:25:01 Marijuana user 716722036 Completed 2021 CRSITO [place] [facility] 3 14:25:01 Anemia of 70799634 Completed 2021 CRISTO [place] [facility] 3 14:25:01 Anemia of 54980753 Active 2021 CRISTO [place] [facility] 3 14:25:01 Problem Notes None recorded. Procedures Surgical History Date Name Laterality Status Provider Name and Address Organization Details Recorded Time 4 arthroplasty completed Yelitza Das [place] [facility] 11/17/2023 15:32:39 Imaging Results None recorded. Procedure [...] Available Not Available Not Available Rosi 0.25 mg-0.035 mg tablet TAKE 1 TABLET BY MOUTH EVERY DAY 11/16 completed Not Available Not Available Not Available Aurovela Fe 1-20 (28) 1 mg-20 mcg (21)/75 mg (7) tablet TAKE 1 TABLET BY MOUTH EVERY DAY active Not Available Not Available No t Available Twirla 120 mcg-30 mcg/24 hr transdermal [...] 3 162.56 cm 25.2 kg/m2 83 % 51347.0 8 g 122 mm[Hg] 69 mm[Hg] CRISTO Matthews [facility] 3 12:26:41 Date Recorded Body height Body mass index (BMI) Percentile per age and sex Body mass index (BMI) Body weight Heart rate Systolic blood pressure Diastolic blood pressure Provider Name and Address Organization Details Last Updated DateTime 4 162.56 cm 57 % 22.1 kg/m2 62795.5 6 g 82 /min 103 mm[Hg] 66 mm[Hg] Yelitza bermudez MA [facility] 4 15:26:47 Date Recorded Body height Body mass index (BMI) Percentile per age and sex Body mass index (BMI) Body weight Systolic blood pressure Diastolic blood pressure Provider Name and Address Organization Details Last Updated DateTime 4 162.56 cm 59 % 22.3 kg/m2 95714.4 4 g 114 mm[Hg] 69 mm[Hg] Kelly Aguirre MA [facility] 4 15:12:09 Date Recorded Body height Body mass index (BMI) Body mass index (BMI) Percentile per age and sex Body weight Systolic blood pressure Diastolic blood pressure Provider Name and Address Organization Details Last Updated DateTime 4 162.56 cm 22.5 kg/m2 60 % 03786.0 3 g 103 mm[Hg] 63 mm[Hg] CRISTO Matthews [facility] 4 13:48:27 Date Recorded Body height Body mass index (BMI) Percentile per age and sex Body mass index (BMI) Body weight Heart rate Systolic blood pressure Diastolic blood pressure Provider Name and Address Organization Details Last Updated DateTime 5 162.56 cm 62 % 22.7 kg/m2 69886.4 8 g 99 /min 101 mm[Hg] 69 mm[Hg] Yelitza bermudez [place] [facility] 5 16:48:18 Social History Question Answer Notes LastModified by Organizat ion Details LastModified Time Tobacco Smoking Status Never Smoker Suyapa Layne [place] null, [place] [facility] 05/04/2017 10:18:06 Animal Exposure? Yes 3 Dogs, 2 Cats [email or web address] Information not available 05/04/2017 Do You Wear A Helmet When Biking? No Information not available 12/18/2021 What Is Your Level Of Caffeine Consumption? Moderate [email or web address] Information not available 05/04/2017 In The 14 [...] For COVID-19? No Information not available 12/12/2020 What Type Of Diet Are You Following? REGULAR Information not available 05/04/2017 Which Illicit Or Recreational Drugs Have You Used? Marijuanna Information not available 12/12/2020 What Is The Highest Grade Or Level Of School You Have Completed Or The Highest Degree You Have Received? [id number] Information not available 12/18/2021 Have There Been Any Changes To Your Family Or Social Situation? No Information not available 01/08/2022 Are There Any Guns Present In Your Home? No [email or web address] Information not available 05/04/2017 What Is Your Home Situation? Both Parents Lives With Mom, Step Dad, 2 Half Brothers [email or web address] Information not available 05/04/2017 Do You Use Insect Repellent Routinely? Yes [email or web address] Information not available 05/04/2017 Car Seat Type Or Seat Belt? Seat Belt [email or web address] Information not available 05/04/2017 Parent Involvement? Dad Not Invloved [email or web address] Information not available 05/04/2017 Riding In Car [...] You Have Any Siblings? 2 Half Brothers [email or web address] Information not available 05/04/2017 Do You Have Smoke And Carbon Monoxide Detectors In Your Home? Yes Information not available 05/04/2017 Are You Passively Exposed To Smoke? Yes [email or web address] Information not available 05/04/2017 Do You Participate In Social Media? Yes Information not available 12/18/2021 Do You Use Sunscreen Routinely? Yes Information not available 05/04/2017 Has Tobacco Cessation Counseling Been Provided? No Information not available 12/12/2020 Have You Used IV Drugs? No Information not available 01/08/2022 Year In School 10 Informatio n not available 12/12/2020 Sex: Female Functional Status Question Answer Note LastModified by Organizat ion Details LastModified Time Do you use any illicit or recreational drugs? Yes pt states she has edi [email or web address] 12/12/20 Information not available 12/12/2020 Do you or have you ever used any other forms of tobacco or nicotine? No Information not available 12/12/2020 What is your level of alcohol consumption? None Information not available 12/12/2020 Are you currently employed? No [employer] Information not available 12/12/2020 What is your exercise level? Moderate [email or web address] Information not available 05/04/2017 Mental Status Question Answer Note LastModified by Organization D etails LastModified Time Do you feel stressed (tense, restless, nervous, or anxious, or unable to sleep at night)? [id number] Information not available 12/12/2020 Are you or have you been involved with bullying? No [email or web address] Information not available 05/04/2017 Family History Relationship Description Onset Age of this Age Resolved Age Notes LastModified by Organization Details LastModified Time Maternal Grandmother Diabetes mellitus [email or web address] Not available 2016 10:17:06 Maternal Grandfather Heart disease [email or web address] Not available 2016 10:17:14 Maternal Grandfather Hypertensive disorder [email or web address] Not available 2016 10:17:23 Father No current problems or disability [email or web address] Not available 05/04 10:17:29 Mother No current problems or disability [email or web address] Not available 05/04 10:17:29 Medical History Condition Response Other N High Blood Pressure N Breast Cancer N Thyroid Problems N Kidney or Bladder Problems N GI Problems N Depression N Blood Clots N Lung Disease N Acne N Breast Problem N Eating Disorder N Anemia N Anesthesia Complications N Headaches/Migraines N Anxiety Disorder N Diabetes N Ovarian Cancer N Muscle, Joint, or Bone Problems N [...] Age at Menarche 11 Current Control Method 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 purified surface antigen) 0 completed GURJIT MA MD Attn: Accounting,204 1 [place], [place], [address] [place] [address], [place] [facility] 05/26/2022 09:56:13 Hep A, pediatric, unspecified formulation 7 completed GURJIT MA MD Attn: Accounting,204 1 [facility], [place], [place], [address] [place] [address], [place] [facility] 05/26/2022 09:56:13 meningococcal MCV4P 6 completed GURJIT MA MD Attn: Accounting,204 [address] [place], [place], [address] [place] [address], [place] [facility] 05/26/2022 09:56:13 Hep A, pediatric, unspecified formulation 0 completed GURJIT MA MD Attn: Accounting,204 1 [place], [place], [address] [place] [address], [place] [facility] 05/26/2022 09:56:13 Influenza, live, quadrivalent, intranasal 3 completed GURJIT MA MD Attn: Accounting,204 [address] [place], [place], [address] [place] [address], [place] [facility] 05/26/2022 09:56:13 HPV9 7 [...] 09:59:43 DTaP, unspecified formulation 7 completed Suyapa [place]LL [place] [facility] 05/04/2017 09:59:49 DTaP-Hep B-IPV 6 completed Suyapa [place] [facility] 05/04/2017 10:00:09 DTaP-Hep B-IPV 7 completed GURJIT MA MD Attn: Accounting,204 [address] [place], [place], [address] [place] [address], [place] [facility] 05/26/2022 09:56:13 DTaP-IPV 0 completed Suyapavahid [place] [facility] 05/04/2017 10:00:28 Hib, unspecified formulation 5 completed Suyapavahid [place] [facility] 05/04/2017 10:00:37 Hib, unspecified formulation 6 completed Suyapa [place]LL [place] [facility] 05/04/2017 10:00:43 Hib, unspecified formulation 7 completed Suyapa [place]LL [place] [facility] 05/04/2017 10:00:47 Hib (PRP-OMP) 7 completed GURJIT MA MD Attn: Accounting,[address] [place], [address], [place] [facility] 05/26/2022 09:56:13 Hep A, ped/adol, 2 dose 7 completed GURJIT MA MD Attn: Accounting,[address] [place], [address], [place] [facility] 05/26/2022 09:56:13 Hep A, ped/adol, 2 dose 0 completed GURJIT MA MD Attn: Accounting,[address] [place], [address], [place] [facility] 05/26/2022 09:56:13 Hep B, adolescent or pediatric 5 completed Suyapa [place] [facility] 05/04/2017 10:01:25 Hep B, adolescent or pediatric 5 completed Suyapa [place] [facility] 05/04/2017 10:01:32 HPV9 6 completed GURJIT MA MD Attn: Accounting,204 1 [place], [place], [address] [place] [address], [place] [facility] 05/26/2022 09:56:13 influenza, unspecified formulation 0 completed GURJIT MA MD Attn: Accounting,204 1 [place], [address] [place] [address], [place] [facility] 05/26/2022 09:56:13 influenza, unspecified formulation 3 completed GURJIT MA MD Attn: Accounting,204 1 [place], [place], [address] [place] [address], [place] [facility] 05/26/2022 09:56:13 MMR 7 completed GURJIT MA MD Attn: Accounting,204 1 [place], [place], [address] [place] [address], [place] [facility] 05/26/2022 09:56:13 MMRV 0 completed [place]LL [place] [facility] 05/04/2017 10:02:22 meningococcal MCV4, unspecified formulation 6 completed GURJIT MA MD Attn: Accounting,204 [address] [place], [place], [address] [place] [address], [place] [facility] 05/26/2022 09:56:13 pneumococcal conjugate PCV 7 5 completed Suyapa [place] [facility] 05/04/2017 10:02:47 pneumococcal conjugate PCV 7 6 completed [place] [facility] 05/04/2017 10:02:50 pneumococcal conjugate PCV 7 7 completed GURJIT MA MD Attn: Accounting,204 1 [place], [address] [place] [address], [place] [facility] 05/26/2022 09:56:13 pneumococcal conjugate PCV 7 7 completed [place] [facility] 05/04/2017 10:02:59 IPV 5 completed Suyapa [place]LL [place] [facility] 05/04/2017 10:03:09 Tdap 6 completed GURJIT MA MD Attn: Accounting,204 1 [facility], [place], [address], [facility] - [facility] 05/26/2022 09:56:13 varicella 7 completed Suyapa Roverto RE[place] null, [place] [facility] 05/04/2017 10:03:32 Past Encounters Encounter ID Performer Location Encounter Start Date Encounter Closed Date Diagnosis/Indication Diagnosis SNOMED-CT Code Diagnosis ICD10 Code Diagnosis Note [id number] MD Neelima Fulton (Peds) [address] [place] [address] 05/04/2017 09:57:14 05/05/2017 08:35:04 Well child 607639995 Z00.129 discussed routine child care attendant discussed safety and school performanc e discussed healthy weight with diet and exercise Dysmenorrhea 814551150 N 94.6 discussed cycles with pt and mother. discussed using ibuprofen 2 days prior to onset to alleviate pain. [id number] MD Neelima Fulton (Peds) [address] [place] [address] 12/16/2018 14:25:57 12/19/2018 10:30:27 Well child 378567153 Z00.129 discussed routine child care attendant discussed safety and school performanc e discussed healthy weight with diet and exercise Dysmenorrhea 569446286 N 94.6 discussed cycles with pt and mother. discussed using ibuprofen 2 days prior to onset to alleviate pain. Diet education 12559840 Z71.3 Exercises education, guidance, and counseling 429214244 Z71.82 [id number] MD Neelima Fulton (Peds) [address] [place] [address] 03/02/2019 16:18:14 03/03/2019 11:42:10 Upper respiratory infection 89195884 J06.9 rest, tylenol prn, humidifier , vitmain c, etc [id number] [facility] [address] [place] [address] 07/27/2019 16:00:43 07/28/2019 09:30:48 Upper respiratory infection 11084638 J06.9 rest, tylenol prn, humidifier , vitmain c, etc [id number] MD Neelima Stewart (IS/IT PROJECT MANAGER) [address] [place] [address] 12/12/2020 10:48:45 12/13/2020 04:20:58 Initial prescription of oral contraception 681382968 Z30.011 control options discussed. Pt. wants pills. Rx sent to pharmacy. Instructio ns discussed. Venereal d isease screening 036721363 Z11.3 Telephone visit one week for results. Missed period 98770601 N 92.5 UPT negative, dwp. [id number] [facility] [address] [place] [address] 12/19/2020 08:08:26 12/26/2020 14:45:15 Bacterial vaginosis 185840931 N76.0 Diagnosis d/w pt. Rx sent to pharmacy. Instructio ns discussed. Venereal d isease screening 941207512 Z11.3 Vaginal culture was negative for gonorrhea, chlamydia, and trichomona s, dwp. STD panel was also completely negative. Individual test results dwp. [id number] [facility] [address] [place] [address] 12/18/2021 10:27:00 12/19/2021 08:00:27 Well child visit 036308913 Z00.129 discussed routine adolescent carediscus sed safety and school performanc ediscussed healthy weight Diet education 85696786 Z71.3 Exercises education, guidance, and counseling 528324510 Z71.82 Teenage 653908 001 O09.619 pt states she has appt arranged with IS/IT PROJECT MANAGER DR [place]. [id number] MD Polo Lindsey 14 OB [address] [facility] [address] Joy [address] [place] [address] 01/08/2022 09:48:27 01/12/2022 07:55:01 Routine care 969608037 Z34.91 Vaginal discharge 797546 006 N89.8 [id number] MD Polo Hernandez 14 IM [address] [facility] [address] [place], [place] [address], [place] [address] 01/14/2022 11:04:01 01/15/2022 10:10:13 Routine care 567740680 Z34.91 Lianet is a 16y/o presenting @ 12+3 dated by LMP; here for dating US.- US consistent with IUP 13+4 with JANICE 07/18/2012- recommend change of dates for >7 days difference . OB episode updated. [id number] MD Polo Lindsey 14 OB [address] [facility] [address] [place], [place] [address], [place] [address] 02/09/2022 10:06:04 02/11/2022 09:18:22 Routine care 179434065 Z34.91 Marijuana user 348866885 F12.90 --Encourag e cessation Teenage 531352 001 O09.613 [id number] MD Polo Lindsey 14 OB [address] [facility] [address] Joy [address] [place], [place] [address], [place] [address] 03/20/2022 10:34:52 03/23/2022 16:42:10 Routine care 869774219 Z34.02 At increas ed risk of urinary tract infection 477895355 Z91.89 Marijuana user 270668303 F12.90 --Encourag e cessation Teenage 481889 001 O09.838 [id number] MD Polo Lindsey [address] [place] [address] Dr Joy [address] [place], [place] [address], [place] [address] 04/17/2022 09:54:54 04/21/2022 09:31:24 Routine care 690704571 Z34.02 At increas ed risk of urinary tract infection 225061223 Z91.89 [id number] [facility]/IT PROJECT MANAGER) [address] [place] [address] 05/26/2022 09:46:37 05/28/2022 11:08:04 Eczema 36102573 L30.9 - Suspect atopic dermatitis related to [...] such as cetirizine as needed for itch [id number]|2024-10-02 12:28:00|2024-10-02 12:28:00|XMS_ITS|BKG JV|External Medical Summaries|[id number]|" Clinical Summary Created on: October 02, 2024 Lianet Wise : 2005 Sex: Female Author Organization [facility] Address [address] [facility] [place] [address] Care Team Providers Care Principal Software Architect Name Role Phone Humphrey Alston MD Primary Care Provider [phone] Source Comments [facility],non-owned Affiliates and Associated Physician Practices is amultiple site organization consisting of ambulatory clinics and hospital sitesin [place], [place], [place] and [place]. This disclosure is being madepursuant to the Care Everywhere program and may not contain all information available regarding this patient. 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 Gender Identity Not on file Sexual Orientation Not on file Plan of Treatment Health Maintenance Due Date Last Done Comments HIV SCREENING 12/16/2019 HPV VACCINE (1 - 3-dose series) 12/16/2019 CHLAMYDIA/GONORRHEA SCREENING 2020 MENINGOCOCCAL (Group B) VACC INE SHARED DECISION-MAKING (1 of 2 - Standard) 2020 HEPATITIS C SCREENING 12/11/2022 DTAP/TDAP/TD VACCINES (1 - Tdap) 12/16/2023 HEPATITIS B VACCINE (1 of 3 - 19+ 3-dose series) 12/16/2023 COVID-19 VACCINE (1 - 2023-2 5 season) 2024 DEPRESSION SCREENING 05/17/2024 INFLUENZA VACCINE (Season Ended) 2025 ZOSTER VACCINE (1 of 2) 2054 HIB VACCINE Aged Out No longer eligi ble based on patient's age to complete this topic MENINGOCOCCAL GROUPS A/C/Y/W VACCINE Aged Out No longer eligible b ased on patient's age to complete this topic PNEUMOCOCCAL VACCINE Aged Out No long er eligible based on patient's age to complete this topic Insurance Care Teams Principal Software Architect Relationship Specialty Start Date End Date Humphrey Alston MD [address] [place] [address] [phone] PCP - General Pediatrics 07/12/20 "
[2024-10-02 12:30] VITALS: BP 107/62; PULSE 106; RESP 16; TEMP 35.7; O2SAT 100
--- NOTE | 2024-10-02 12:47 | ED.URI ---
HPI - URI/Sore Throat General Chief Complaint: Upper Respiratory Infection Stated Complaint: Headache/Cough/Sore Throat/Dizziness Time Seen by Provider: 10/02/24 12:47 Source: patient and RN notes reviewed Mode of arrival: ambulatory Limitations: no limitations History of Present Illness HPI Narrative: 18-year-old female presents concern of for dizziness, sore throat, cough, headache. She reports dizziness for 1 week when she stands up only. She reports other symptoms started yesterday. She denies thunderclap headache, weakness in any extremity, difficulty speaking or swallowing. She has not taken any medication for her symptoms. MD elicited complaint: sore throat Related Data Home Medications Medication Instructions Recorded Confirmed Last Taken Type norethindrone 1 mg-ethinyl tablet 06/22/24 Unknown History estradiol 20 mcg (21)-iron 75 mg (7) tablet (Aurovela Fe 1-20 (28)) Allergies Allergy/AdvReac Type Severity Reaction Status Date / Time No Known Allergies Allergy Unknown Verified 10/02/24 12:35 Review of Systems Review of Systems: CONSTITUTIONAL: Denies malaise, chills, sweats, or fever. EYES: Denies visual changes, redness, or discharge. ENT: Denies rhinorrhea, congestion, sinus pain, otalgia. Reports sore throat. CARDIOVASCULAR: Denies chest pain, palpitations, or edema. RESPIRATORY: Reports cough. Denies dyspnea. GASTROINTESTINAL: Denies abdominal pain, nausea, vomiting, diarrhea SKIN: Denies rash or itching. MUSCULOSKELETAL: Denies myalgia. NEUROLOGIC: Reports headache. All systems reviewed & are unremarkable except as noted in HPI and below PMFSH Past Medical History Medical History No pertinent past medical history Surgical History Surgical History No pertinent past surgical history Family History Family History Mother Family history non-contributory Social History Social History Smoking status: Never smoker Alcohol intake: never Substance use: never Living arrangements: with family Gender identity (if verbalized by the patient): Female Spiritual care concerns: No Comments At time of signature, agree with nursing past medical, surgical, social and family history. There is no relevant family history pertinent to the presenting complaint Exam Narrative: GENERAL: Well-appearing, well-nourished, and in no acute distress. HEAD: Normocephalic EYES: PERRLA, conjunctivae clear ENT: Nares clear. Mucous membranes moist. TM pearly schwarz with sharp light reflex bilaterally; no tragal tenderness. Oropharynx not erythematous without lesions. Tonsils not enlarged and without exudate, no drooling, no hoarseness, no trismus, uvula midline. NECK: Supple. No lymphadenopathy CHEST: Clear to auscultation, breath sounds equal. No wheezing, rhonchi, rales, or stridor. No respiratory distress, speaks in full sentences. HEART: Regular rate and rhythm. No murmur heard. SKIN: Warm, dry, no rash. NEURO: Alert and oriented x3. No focal deficits. Cranial nerves 2-12 grossly intact PSYCH: Normal mood and affect Course Course Emergency Course: Patient is aware of diagnosis, understands and agrees to treatment plan. Anticipatory guidance given. Patient agrees to follow-up as directed and is aware of reasons to seek care at the emergency department. Portions of this record may have been created with voice recognition software Level of Care: Express Care Visit Vital Signs Vital signs: Vital Signs Temperature 96.3 F L 10/02/24 12:30 Pulse Rate 106 H 10/02/24 12:30 Respiratory Rate 16 10/02/24 12:30 Blood Pressure 107/62 10/02/24 12:30 Pulse Oximetry 100 10/02/24 12:30 Oxygen Delivery Room Air 10/02/24 12:30 Temperature 96.3 F L 10/02/24 12:30 Pulse Rate 106 H 10/02/24 12:30 Respiratory Rate 16 10/02/24 12:30 Blood Pressure 107/62 10/02/24 12:30 Pulse Oximetry 100 10/02/24 12:30 Oxygen Delivery Room Air 10/02/24 12:30 Reviewed. MDM - URI/Sore Throat MDM Narrative Medical decision making narrative: Differential diagnosis considered: Barger virus, strep pharyngitis, allergic rhinitis, upper respiratory tract infection, sinusitis, rhinosinusitis, nasopharyngitis. viral pharyngitis, otitis media, otitis externa, pneumonia, bronchitis, viral cough syndrome, viral syndrome, and influenza. Exam findings show no acute concerns or changes; patient is non-toxic appearing and is in no distress. Patient is appropriate for outpatient treatment and follow-up. Lab Data Attestation: I reviewed the patient's lab results. Critical Care Time Critical Care Time Critical Care Time: No Discharge Plan Discharge Clinical Impression: Upper respiratory infection Patient Disposition: Home Condition: Stable Instructions: Upper Respiratory Infection (ED) Additional Instructions: Your rapid strep swab was negative today at [facility]. A throat culture will be sent to the laboratory for further testing. If the test is positive, you will receive a phone call within 48 hours and an appropriate antibiotic will be initiated at that time. Your symptoms are likely due to a viral illness, which is not treated with antibiotics. Viral symptoms can be present for up to a few weeks. -Alternate Tylenol and Motrin per package directions for fever or pain. -Antihistamine medication such as Benadryl at night and Zyrtec during the day can help improve symptoms. -Eat and drink things that are easy to swallow, like tea or soup, or popsicles to suck on. -Oral rinses such as: Salt water gargles and/or may use topical anesthetic (eg. Chloraseptic spray) or lozenges to relieve dryness or throat pain). -Frequent hand washing or hand cheese cutter is one of the best ways to prevent spread of infection. -Follow up with primary care provider in 2-3 days if condition is not improving; or seek ER visit if you have trouble breathing, cannot drink enough fluids, have muffled voice, difficulty opening your mouth, or severe swelling. Patient Language: Yoruba Prescriptions: New cetirizine-pseudoephedrine [Zyrtec-D] 5-120 mg tablet extended release 12 hr 1 tablet PO Q12H PRN (Reason: nasal congestion) Qty: 12 0RF No Action norethindrone-e.estradiol-iron [Aurovela Fe 1-20 (28)] 1 mg-20 mcg (21)/75 mg (7) tablet Follow-up/Referrals: Aamir,Margaret Gary MD [Primary Care Provider] - Time of Disposition: 13:04
[2024-10-02 12:48] LABS: EDSTREPNEGPOS1 Negative (Negative)
== END 2024-10-02 13:07 | disposition home or self-care (01) ==
PROVIDERS: Emergency Provider Nurse Practitioner; PCP Family Medicine
DX: J02.9 Acute pharyngitis, unspecified (principal); J06.9 Acute upper respiratory infection, unspecified
CPT/HCPCS: 87081; 87880; 99213; G0463

== ENCOUNTER 2025-05-01 17:48 | Emergency (ER) | payer OTHER, SELFPAY ==
[2025-05-01 18:13] VITALS: BP 97/64; PULSE 87; RESP 16; TEMP 36.7; O2SAT 99
--- OUTSIDE RECORDS SUMMARY | 2025-05-01 18:25 | XMS_ITS | Clinical Summary ---
Author Organization [facility] Address [address] [place] [address] Phone Care Team Providers Care Head Custodian Name Role Phone Humphrey Alston MD Primary [...] 10:14 PM CDT Respiratory Rate 18 11/06/2019 12:14 AM CDT Oxygen Saturation 99% 11/06/2019 12:14 AM CDT Inhaled Oxygen Concentration - - Weight 48.8 kg (107 lb 9.4 oz) 11/05/2019 10:14 PM CDT Height 160 cm (5' 3) 11/05/2019 10:14 PM CDT Body Mass Index 19.06 11/05/2019 10:14 PM CDT Plan of Treatment Health Maintenance Due Date Last Done Comments Hepatitis C Virus (HCV) Screening 2004 Meningococcal B Immunization (1 of 2 - Standard) 2020 Influenza Immunization (#1) 01/15/202504/16, 01/28/2016, 03/03/2013 SARS-COV-2 Immunization ( - season) 2025 Respiratory Syncytial Virus (RSV) Immunization (Adult) (1 [...] 07/13/2006, 11/19/2005, Additional history exists Varicella Immunization Completed 01/29/2010, 2006 DTaP/Tdap/Td Immunization Discontinued 2015, 01/29/2010, 03/08/2007, Additional history exists TdaP Immunization Completed 01/28/2016 Human Papillomavirus (HPV) Immunization Completed 05/04/2017, 01/28/2016 Meningococcal Immunization (ACWY) Completed 12/18/2021, 01/28/2016 Rotavirus Immunization Aged Out No lo nger eligible based on patient's age to complete this topic Insurance MEDICAID [employer] Care Teams Head Custodian Relationship Specialty Start Date End Date Humphrey Alston MD [address] [place] [id number] PCP - General Pediatrics 11/05/19
--- OUTSIDE RECORDS SUMMARY | 2025-05-01 18:25 | XMS_ITS | Clinical Summary ---
Author Organization [facility] [employer] Address [address] [place] [address] Care Team Providers Care Sinker Winder Name Role Phone Humphrey Alston MD Primary Care Provider [phone] Source Comments [facility] [employer],non-owned Affiliates and Associated Physician Practices is amultiple site organization consisting of ambulatory clinics and hospital sitesin [place], [place], [place] and [place]. This disclosure is being madepursuant to the Care Everywhere program and may not contain all information available regarding this patient. 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 Gender Identity Not on file Sexual Orientation [...] of 3 - 19+ 3-dose series) 12/16/2023 DEPRESSION SCREENING 05/17/2024 COVID-19 VACCINE (1 - 2024-2 6 season) 2025 INFLUENZA VACCINE (#1) 2025 ZOSTER VACCINE (1 of 2) 2054 HIB VACCINE Aged Out No longer eligi ble based on patient's age to complete this topic MENINGOCOCCAL GROUPS A/C/Y/W VACCINE Aged Out No longer eligible b ased on patient's age to complete this topic PNEUMOCOCCAL VACCINE Aged Out No long er eligible based on patient's age to complete this topic Insurance [facility] Care Teams Sinker Winder Relationship Specialty Start Date End Date Humphrey Alston MD [address] [place] [phone] PCP - General Pediatrics 07/12/20
--- OUTSIDE RECORDS SUMMARY | 2025-05-01 18:25 | XMS_ITS | Clinical Summary ---
Author Organization [facility] Address [address] [place] [address] Care Team Providers Care Director Of Accreditation Name Role Phone Ronnell Reese MD Unavailable Margaret Obregon MD Primary Care Provider [phone] Allergies Active Allergy Reactions Criticality Noted Date Comments Other Rash Medium 06/06/2023 control patch - broke out into a rash (cannot remember the name of the medication but started with a t) Medications senna-docusate (PERICOLACE) 8.6-50 mg Take 2 [...] 06/05/2023 Assessment & Plan (06/25/2023 10:29 AM PATTERN REPAIR PERSON): -Patient presents to clinic for a post [...] concerns. Assessment & Plan (06/09/2023 12:04 PM PATTERN REPAIR PERSON): Tammy Lopez is an 17 y.o. female [...] [] Blue Team Referring Provider: Ronnell Reese [phone] [] or Medicare Insurance [x] Dating Criteria: [...] [] MOC: [] Method of feeding: [] Mica Washer Gluer: [] PP Depression Discussed: Abnormal ultrasound 04/13/2022 [...] Tobacco: Never Tobacco Cessation:Counseling Given: Not Answered [facility] Utilities Answer Date Recorded In the past 12 months has e [place], gas, oil, or water [employer] threatened to shut off services in your home? No 06/10/2023 Social Connection and Isolation Panel Answer Date Recorded In a typical week, how many times do you talk on the phone with family, friends, or neighbors? More than three times a week 06/10/2023 How often do you get togethe r with friends or relatives? More than three times a week 06/10/2023 How often do you attend chur ch or christian services? Never 06/10/2023 Do you belong to any clubs o r organizations such as anglican groups, unions, fraternal or athletic groups, or [...] care, and heating? Not very hard 06/10/2023 [facility] of Occupat ional Health - Occupational Stress [...] place to sleep or slept in a mcc (including now)? No 06/10/2023 Personal Safety Answer Date Recorded Have you ever been in or are you currently in a harmful physical or emotional relationship or is someone making you feel afraid or unsafe? Denies 10/05/2023 Comments No Sex and Gender Information Value Date Recorded Sex Assigned at Not on file Legal Sex Female 12:37 PM PATTERN REPAIR PERSON Gender Identity Not on file Sexual Orientation Not on file Obstetrics History Para Term AB IAB SAB Ectopic Multiple Livin g Live Births 1 1 1 0 1 1 Date Outcome GA Total Labor Labor/2nd/3rd Weight Sex Type Anes PTL Yessenia A1 A5 Name Clin 2022 Term 40w 4d 6h 41m 3h 43m/2h 55m/0h 03m 3.32 kg (7 lb 5.1 oz) F Vag-S pont Epidur al N Livin g 7 8 ESTEVAN IPS,G IRLBR OOKE Hardazar n, Ronnell heart MD Delivery Location:This [facility] ([facility] Last Filed Vital Signs Vital Sign Reading [...] 2:21 PM CDT Height 162.6 cm (5' 4) 10/05/2023 2:21 PM CDT Body Mass Index 23.17 10/05/2023 2:21 PM CDT Plan of Treatment Health Maintenance Due Date Last Done Comments Depression Screening 2004 Meningococcal B Vaccine (1 o f 2 - Standard) 2020 Regular Well Visit/Exam 18-64 2022 Influenza Vaccine (#1) 2025 7, 01/28/2016, 03/03/2013, Additional history exists DTaP/Tdap/Td [...] Most Recently Relevant to Health Maintenance Insurance [facility] MEDICA[facility] Advance Directives For more information, please contact: [phone] * Full Code (Latest Code Status on [...] c ase of cardiopulmonary arrest Care Teams Director Of Accreditation Relationship Specialty Start Date End Date Margaret Obregon MD [address] [place] [phone] PCP - General Obstetrics and Gynecology 06/05/23 Ronnell Reese MD [address] RAFIQ Gould [address] [address] Online Communications Manager Obstetrics and Gynecology 07/24/22
--- NOTE | 2025-05-01 18:56 | ED_ITS ---
HPI - General Adult General Chief complaint: Skin/Abscess/Foreign Body Stated complaint: Skin Sore Both Hands Time Seen by Provider: 05/01/25 18:57 Source: patient, RN notes reviewed and old records reviewed Mode of arrival: ambulatory Limitations: no limitations History of Present Illness HPI narrative: 19 year old female with severe eczema to bilateral hands with right hand worse than left. Patient has red excoriated skin areas noted on hands. Patient reports that she has tried many OTC lotions such as Aquaphor and also Eucerin which only makes her hands burn. She reports that she has seen lead java developer architect in the past in regards to her eczema. Patient reports that the only thing she can use is Vaseline to her hands. Patient reports that she has had a flare to her hands this week. MD complaint: hand rash flare on eczema Onset (ago): week(s) Location: left, right and upper extremity (hands right greater to left) Severity scale (1-10): 2 Treatments prior to arrival: other (Vaseline) Related Data Home Medications ?Medication ?Instructions ?Recorded ?Confirmed ?Last Taken ?Type norethindrone 1 mg-ethinyl tablet 06/22/24 Unknown Hi story estradiol 20 mcg (21)-iron 75 mg (7) tablet (Aurovela Fe 1-20 (28)) Allergies Allergy/AdvReac Type Severity Reaction Status Date / Time No Known Allergies Allergy Unknown Verified 05/01/25 18:41 Review of Systems Review of Systems: CONSTITUTIONAL: Denies fever, chills, or sweats. CARDIOVASCULAR: Denies chest pain, palpitations, or edema. RESPIRATORY: Denies cough or dyspnea. SKIN: Reports excoriated areas to bilateral hands especially right reports flare of eczema for past week MUSCULOSKELETAL: Denies joint pain or myalgia. NEUROLOGIC: Denies headache, numbness, or weakness. All systems reviewed & are unremarkable except as noted in HPI and below PMFSH Past Medical History Medical History Eczema Surgical History Surgical History No pertinent past surgical history Family History Family History Mother Family history non-contributory Social History Social History Smoking status: Never smoker Alcohol intake: never Substance use: never Living arrangements: with family Gender identity (if verbalized by the patient): Female Spiritual care concerns: No Comments At time of signature, agree with nursing past medical, surgical, social and family history. There is no relevant family history pertinent to the presenting complaint Exam Narrative: GENERAL: Well-appearing, well-nourished, and in no acute distress. HEAD: Normocephalic, atraumatic. EYES: PERRLA, conjunctivae clear, and EOMI. ENT: Mucous membranes moist. Oropharynx without edema, erythema or lesions. NECK: Supple. No lymphadenopathy CHEST: Clear to auscultation. No respiratory distress.SAO2 99% on room air HEART: Regular rate and rhythm. SKIN: Warm, dry.? Patches of erythema with excoriation to hands flare of eczema to bilateral hands for one week NEURO:? Alert and oriented x3. PSYCH: Normal mood and affect Course Course Level of Care: Express Care Visit Vital Signs Vital signs: Vital Signs Temperature 36.7 C 05/01/25 18:13 Pulse Rate 87 05/01/25 18:13 Respiratory Rate 16 05/01/25 18:13 Blood Pressure 97/64 L 05/01/25 18:13 Pulse Oximetry 99 05/01/25 18:13 Oxygen Delivery Room Air 05/01/25 18:13 Temperature 36.7 C 05/01/25 18:13 Pulse Rate 87 05/01/25 18:13 Respiratory Rate 16 05/01/25 18:13 Blood Pressure 97/64 L 05/01/25 18:13 Pulse Oximetry 99 05/01/25 18:13 Oxygen Delivery Room Air 05/01/25 18:13 reviewed MDM MDM Narrative Medical decision making narrative: Patient presents with flare of eczema to bilateral hands will treat with 5 days of prednisone. Patient is appropriate for out patient care and follow up. Reasons to seek care in the ED reviewed with understanding voiced. Differential Diagnosis Differential Diagnosis: Differential diagnostic considerations for skin/abscess/foreign body issues include abscess of skin or subcutaneous tissue, viral exanthem, dermatophytosis, urticaria, herpes zoster, allergic reaction to drug, cellulitis, eczema, insect bites, impetigo, contact dermatitis, vasculitis. Critical Care Time Critical Care Time Critical Care Time: No Discharge Plan Discharge Clinical Impression: Eczema Qualifiers: Eczema type: unspecified Qualified Code(s): L30.9 - Dermatitis, unspecified Patient Disposition: Home Condition: Stable Instructions: Antibiotic Form Additional Instructions: Zyrtec daily watch for any increasing infection--redness, swelling, drainage Tylenol for any fever pain follow up with PCP in 7-10 days for a wound check recheck if develop fever, chills, increasing symptom Go to the ER if your symptoms become worse of if ANY new symptoms develop prednisone daily for 5 days If your symptoms persist, change or worsen significantly before you can contact your personal physician then please, without delay, go to the emergency department for further evaluation. Follow-up with PCP in 7-10 days or sooner if needed Patient Language: Turkish Prescriptions: New prednisone 20 mg tablet 40 mg PO DAILY 5 Days Qty: 10 0RF Rx Instructions: take in the morning No Action norethindrone-e.estradiol-iron [Aurovela Fe 1-20 (28)] 1 mg-20 mcg (21)/75 mg (7) tablet Follow-up/Referrals: PHYSICIAN,CLINICAL DOCUMENTATION CONSULTANT [Primary Care Provider, Internal Medicine] Time of Disposition: 19:13 Quality [place]lyn Coma Scale Eyes: Open Verbal: Oriented and Alert Motor: Follows Commands [place] Coma Total Score: 15
== END 2025-05-01 19:15 | disposition home or self-care (01) ==
PROVIDERS: Emergency Provider Registered Nurse
DX: L30.9 Dermatitis, unspecified (principal)
CPT/HCPCS: 99213; G0463